=== PATIENT | female | born 1955 | race Caucasian/White ===

== ENCOUNTER 2016-05-23 13:00 | Inpatient (IN) | payer MEDICAID, MEDICARE ==
[2016-05-23] MEDS ORDERED: ASPIRIN 81 MG TABLET, CHEWABLE PO ONE (13:02)
[2016-05-23] MEDS ORDERED: DILTIAZEM HCL INJ 25 MG/5 ML VIAL IV ONE (13:07)
[2016-05-23] MEDS ORDERED: DILTIAZEM HCL/D5W 125 ML IV PRN ×2 (13:07→16:06)
[2016-05-23 13:33] LABS: ABSOLUTE BASOPHILS # (AUTO) 0.1 10^3/uL (0.0-0.2); ABSOLUTE EOSINOPHILS # (AUTO) 0.1 10^3/uL (0.0-0.6); ABSOLUTE LYMPHOCYTES (AUTO) 1.7 10^3/uL (0.5-4.7); ABSOLUTE MONOCYTES (AUTO) 0.8 10^3/uL (0.1-1.4); ABSOLUTE NEUT (AUTO) 8.1 10^3/uL (1.7-8.2); BASOPHILS % (AUTO) 0.6 % (0-2); EOSINOPHILS % (AUTO) 0.8 % (0-6); HEMATOCRIT 38.1 % (36.0-47.0); HEMOGLOBIN 13.2 g/dL (12.0-15.5); HGB HCT DIFFERENCE 1.5; LYMPHOCYTES % (AUTO) 16.1 % (13-45); MEAN CORPUSCULAR HEMOGLOBIN 32.3 pg (27.0-33.4); MEAN CORPUSCULAR HGB CONC 34.7 g/dL (32.0-36.0); MEAN CORPUSCULAR VOLUME 93 fl (80-97); MONOCYTES % (AUTO) 7.6 % (3-13); RED CELL DISTRIBUTION WIDTH 12.9 % (11.5-14.0); SEGMENTED NEUTROPHILS % (AUTO) 74.9 % (42-78); WHITE BLOOD COUNT 10.8 10^3/uL (4.0-10.5)
[2016-05-23 13:49] LABS: ALANINE AMINOTRANSFERASE 27 U/L (9-52); ALBUMIN 3.4 g/dL (3.5-5.0); ALKALINE PHOSPHATASE 77 U/L (38-126); ANION GAP 10 (5-19); ASPARTATE AMINO TRANSFERASE 13 U/L (14-36); BILIRUBIN,DIRECT 0.2 mg/dL (0.0-0.4); BILIRUBIN,TOTAL 0.7 mg/dL (0.2-1.3); BLOOD UREA NITROGEN 6 mg/dL (7-20); CALCIUM 9.3 mg/dL (8.4-10.2); CARBON DIOXIDE 28 mmol/L (22-30); CHLORIDE 101 mmol/L (98-107); CREATINE KINASE 71 U/L (30-135); CREATININE RESULT 0.59 mg/dL (0.52-1.25); GLUCOSE 107 mg/dL (75-110); SODIUM 139.4 mmol/L (137-145); TOTAL PROTEIN 6.2 g/dL (6.3-8.2)
--- NOTE | 2016-05-23 13:51 | ER Document Report ---
ED General - General Chief Complaint: Shortness Of Breath Stated Complaint: BREATHING PROBLEMS Mode of Arrival: Medic Information source: Patient, Emergency Med Personnel Notes: 60-year-old female history COPD A. fib on Eliquis presents by EMS with concerns of one week duration of productive yellow cough with shortness of breath. Patient was found with a heart rate in the 180s, was given breathing treatments by EMS due to left upper lobe rhonchi. Patient notes fevers at home - HPI Onset: Last week Onset/Duration: Persistent Quality of pain: Achy Severity: Mild Pain Level: 1 Associated symptoms: Productive cough, Fever, Shortness of breath Exacerbated by: Walking Relieved by: Denies Similar symptoms previously: No Recently seen / treated by doctor: No Past Medical History - Social History Smoking Status: Current Every Day Smoker Cigarette use (# per day): Yes Chew tobacco use (# tins/day): No Smoking Education Provided: Yes - Patient counselled regarding cessation for 4 minutes Family History: Reviewed & Not Pertinent - Past Medical History Cardiac Medical History: Reports: Hx Atrial Fibrillation, Hx Hypercholesterolemia, Hx Hypertension Review of Systems - Review of Systems Notes: REVIEW OF SYSTEMS: CONSTITUTIONAL : Denies fever, chills, or sweats. Denies recent illness. EENT: Denies eye, ear, throat, or mouth pain or symptoms. Denies nasal or sinus congestion or discharge. Denies throat, tongue, or mouth swelling or difficulty swallowing. CARDIOVASCULAR: Denies chest pain. Denies palpitations or racing or irregular heart beat. Denies ankle edema. RESPIRATORY: Admits cough shortness breath difficult to breathing productive GASTROINTESTINAL: Denies abdominal pain or distention. Denies nausea, vomiting , or diarrhea. Denies blood in vomitus, stools, or per rectum. Denies black, tarry stools. Denies constipation. GENITOURINARY: Denies difficulty urinating, painful urination, burning, frequency, blood in urine, or discharge. FEMALE GENITOURINARY: Denies vaginal bleeding, heavy or abnormal periods, irregular periods. Denies vaginal discharge or odor. MUSCULOSKELETAL: Denies back or neck pain or stiffness. Denies joint pain or swelling. SKIN: Denies rash, lesions or sores. HEMATOLOGIC : Denies easy bruising or bleeding. LYMPHATIC: Denies swollen, enlarged glands. NEUROLOGICAL: Denies confusion or altered mental status. Denies passing out or loss of consciousness. Denies dizziness or lightheadedness. Denies headache. Denies weakness or paralysis or loss of use of either side. Denies problems with gait or speech. Denies sensory loss, numbness, or tingling. Denies seizures. PSYCHIATRIC: Denies anxiety or stress. Denies depression, suicidal ideation, or homicidal ideation. ALL OTHER SYSTEMS REVIEWED AND NEGATIVE. Dictation was performed using [employer] voice recognition software PHYSICAL EXAMINATION: GENERAL: Well-appearing, well-nourished and in no acute distress. HEAD: Atraumatic, normocephalic. EYES: Pupils equal round and reactive to light, extraocular movements intact, conjunctiva are normal. ENT: Nares patent, oropharynx clear without exudates. Moist mucous membranes. NECK: Normal range of motion, supple without lymphadenopathy LUNGS: Breath sounds clear to auscultation bilaterally and equal. No wheezes rales or rhonchi. HEART: A. fib RVR ABDOMEN: Soft, nontender, nondistended abdomen. No guarding, no rebound. No masses appreciated. Female : deferred Musculoskeletal: Normal range of motion, no pitting or edema. No cyanosis. NEUROLOGICAL: Cranial nerves grossly intact. Normal speech, normal gait. Normal sensory, motor exams PSYCH: Normal mood, normal affect. SKIN: Warm, Dry, normal turgor, no rashes or lesions noted. Physical Exam - Vital signs Vitals: Resp Pulse Ox 22 H 99 05/23/16 13:04 05/23/16 13:04 Course - Re-evaluation Re-evalutation: 05/23/16 13:51 Patient was given Cardizem heart rate is now 93 and irregular. Laboratory imaging pending 05/23/16 14:41 Patient is placed on Cardizem drip, will be admitted for A. fib RVR COPD exacerbation - Vital Signs Vital signs: Temp Pulse Resp BP Pulse Ox 22 H 127/80 H 95 05/23/16 14:01 05/23/16 14:00 05/23/16 14:01 - Laboratory Result Diagrams: 05/23/16 13:20 05/23/16 13:20 Laboratory results interpreted by me: 05/23/16 05/23/16 13:20 13:20 WBC 10.8 H BUN 6 L AST 13 L Total Protein 6.2 L Albumin 3.4 L Critical Care Note - Critical Care Note Total time excluding time spent on procedures (mins): 34 Comments: minutes of critical care time spent in direct contact evaluating and reevaluating the patient, treating symptoms, reviewing labs and studies and speaking with family and consultants excluding any procedures Discharge - Discharge Clinical Impression: Encounter for smoking cessation counseling, Atrial fibrillation with rapid ventricular response, Obstructive chronic bronchitis with exacerbation Condition: Fair Disposition: ADMITTED INPATIENT Admitting Provider: Hospitalist Unit Admitted: Telemetry
[2016-05-23 14:01] LABS: CREATINE KINASE MB 1.07 ng/mL (<4.55)
[2016-05-23 14:02] LABS: TROPONIN I < 0.012 ng/mL
[2016-05-23 15:17] LABS: APPEARANCE,URINE CLEAR; BILIRUBIN,URINE NEGATIVE (NEGATIVE); GLUCOSE, URINE NEGATIVE (NEGATIVE); KETONES,URINE NEGATIVE (NEGATIVE); LEUKOCYTE ESTERASE,URINE NEGATIVE (NEGATIVE); NITRITE,URINE NEGATIVE (NEGATIVE); PROTEIN,URINE NEGATIVE (NEGATIVE); URINE SPECIFIC GRAVITY 1.004
[2016-05-23] MEDS ORDERED: ALBUTEROL SULFATE 0.083% NEB 2.5 MG/3 ML AMPUL NEB PRN (16:01)
[2016-05-23] MEDS ORDERED: MAGNESIUM HYDROXIDE SUSP 30 ML UDCUP PO PRN (16:01)
[2016-05-23] MEDS ORDERED: RINGERS SOLUTION,LACTATED 1,000 ML IV PRN (16:01)
[2016-05-23] MEDS ORDERED: ONDANSETRON HCL INJ/PF 4 MG/2 ML SDV IV PRN (16:01)
[2016-05-23] MEDS ORDERED: ACETAMINOPHEN 325 MG TABLET PO PRN (16:01)
--- NOTE | 2016-05-23 16:22 | PDOC H&P ---
History of Present Illness Admission Date/PCP: 05/23/16 15:07 Patient complains of: My heart is racing History of Present Illness: WALLY MARIA is a 60 year old female presents to the emergency department from home with 1 week history of not feeling well described as intermittent racing heart and palpitations, increasing shortness of breath with wheezing and progressive weakness. She became dizzy this morning but did not lose consciousness and decided it was time to come in to the emergency department for further evaluation. She has a history of chronic atrial fibrillation previously controlled on Tikosyn and Eliquis but followed by cardiology in [place] and she has recently moved to this area and not established with new providers. she thinks she may have run out of her meds in the last week or so. She denies fevers and chills, chest pain, nausea, vomiting, night sweats, hemoptysis. Evaluation in the emergency department found her to be in atrial fibrillation with a rapid ventricular response and actively wheezing we were consulted to admit for further evaluation and management. Past Medical History Cardiac Medical History: Reports: Atrial Fibrillation, Hyperlipidema, Hypertension Pulmonary Medical History: Reports: Chronic Obstructive Pulmonary Disease (COPD) Social History Smoking Status: Current Every Day Smoker Frequency of Alcohol Use: None Hx Recreational Drug Use: No Hx Prescription Drug Abuse: No - Advance Directive Resuscitation Status: Full Code Family History Family History: Reviewed & Not Pertinent Parental Family History Reviewed: Yes Children Family History Reviewed: Yes Sibling(s) Family History Reviewed.: Yes Medication/Allergy Home Medications: Albuterol Sulfate [Proair HFA Inhalation Aerosol 8.5 gm MDI] 2 puff IH PRN PRN 05/23/16 Apixaban [Eliquis 5 mg Tablet] 5 mg PO BID 05/23/16 Buspirone HCl [Buspar 10 mg Tablet] 10 mg PO BID 05/23/16 Cyclobenzaprine HCl [Flexeril 10 mg Tablet] 10 mg PO Q8HP PRN 05/23/16 Dofetilide [Tikosyn] 250 mg PO Q12 05/23/16 Fluticasone/Salmeterol [Advair 250-50 Diskus 28 dose] 1 puff IH BID 05/23/16 Levothyroxine Sodium [Synthroid 0.1 mg Tablet] 0.1 mg PO DAILY 05/23/16 Magnesium Oxide [Mag-Ox 400 mg Tablet] 400 mg PO DAILY 05/23/16 Montelukast Sodium [Singulair 10 mg Tablet] 10 mg PO QHS 05/23/16 Pantoprazole Sodium [Protonix] 40 mg PO BID 05/23/16 Sertraline HCl [Zoloft] 100 mg PO DAILY 05/23/16 Review of Systems Constitutional: ABSENT: chills, fever(s), headache(s), weight gain, weight loss Eyes: ABSENT: visual disturbances Ears: ABSENT: hearing changes Cardiovascular: PRESENT: dyspnea on exertion, palpitations. ABSENT: chest pain , edema, orthropnea Respiratory: PRESENT: as per HPI, cough, other. ABSENT: hemoptysis, sputum Gastrointestinal: ABSENT: abdominal pain, constipation, diarrhea, hematemesis, hematochezia, nausea, vomiting Genitourinary: ABSENT: dysuria, hematuria Musculoskeletal: ABSENT: joint swelling Integumentary: ABSENT: rash, wounds Neurological: PRESENT: dizziness. ABSENT: abnormal gait, abnormal speech, confusion, focal weakness, syncope Psychiatric: ABSENT: anxiety, depression Endocrine: ABSENT: cold intolerance, heat intolerance, polydipsia, polyuria Hematologic/Lymphatic: ABSENT: easy bleeding, easy bruising Physical Exam Vital Signs: Temp Pulse Resp BP Pulse Ox 22 H 127/80 H 95 05/23/16 14:01 05/23/16 14:00 05/23/16 14:01 PHYSICAL EXAM GENERAL: NAD; well developed,THIN AND FRAIL; no obese; alert and oriented to person, place, time, situation HEENT: normocephalic, atraumatic; EOMI, PERRLA, no conjunctival injection, no scleral icterus; oral mucosa moist, post oropharynx red/edematous without exudate, neck supple, no LAD, normal ROM RESPIRATORY: no accessory muscle use, no increased WOB, good air entry bilaterally; no wheezes, rales, rhonchi; no inspiratory crackles CARDIO: no JVD; irr irr; no systolic murmur; tachycardia; cardizem at 10mg/hr VASCULAR: no carotid bruit; no abdominal bruit; no pallor; 2+ radial, DP pulse ; normal capillary refill GI: soft; nondistended; normal bowel sounds; no hepato spleno megaly; no rebound, rigidity, guarding; nontender NEURO: normal patella reflexes; normal sensation; normal motor function; no dysarthria; no nystagmus; tongue protrudes midline; MSK: 4/5 strength; normal ROM hips; no tenderness EXTREMITIES: no calf tender; no palpable cords in calf; no clubbing, cyanosis , pedal edema PSYCH: normal affect, normal mood SKIN: warm; moist; no petechiae; no telengectasias; no jaundice; no rash Results Laboratory Results: Labs reviewed, mild leukocytosis at 10.8 rest of CBC normal; chemistries unremarkable with good renal function, LFTs good; troponin negative; urinalysis shows moderate blood for urobilinogen 5 RBC 1 WBC negative nitrite and negative leukocyte esterase EKG Comments: A. fib with RVR, ST changes that are likely repolarization abnormality due to the rate, corrected QT interval is 490 Impressions: Chest X-Ray 05/23/16 13:02 IMPRESSION: COPD. NO ACUTE RADIOGRAPHIC FINDING IN THE CHEST. Status: Image reviewed by me - Agree with radiology Assessment & Plan - Diagnosis (1) COPD exacerbation Is this a current diagnosis for this admission?: YesPlan: Possible acute bacterial bronchitis accounting for the exacerbation. Start systemic steroids, empiric antibiotics, scheduled and as needed nebulizers, supplemental O2, and IS. (2) Atrial fibrillation with RVR Is this a current diagnosis for this admission?: YesPlan: Admit the patient to IMCU for IV fluids, continue Cardizem drip, trend cardiac enzymes tonight. Check stat d-dimer and if positive sent for CT angiography of the chest. I spoke with Dr. Burgos who will see the patient in consultation. Continue anticoagulation. (3) Tobacco dependence Is this a current diagnosis for this admission?: YesPlan: Tobacco cessation counseling. (4) Depression Qualifiers: Depression Type: unspecified Qualified Code(s): F32.9 - Major depressive disorder, single episode, unspecified Is this a current diagnosis for this admission?: YesPlan: Controlled, continue home regimen. (5) Hypothyroidism Qualifiers: Hypothyroidism type: unspecified Qualified Code(s): E03.9 - Hypothyroidism, unspecified Is this a current diagnosis for this admission?: YesPlan: TSH shows hormone replacement at therapeutic levels, continue home regimen. (6) Chronic anticoagulation Is this a current diagnosis for this admission?: YesPlan: As above, continue Eliquis - Time Time Spent: 50 to 70 Minutes Medications reviewed and adjusted accordingly: Yes Anticipated discharge: Home Within: within 72 hours - Inpatient Certification Medical Necessity: Significant Comorbidiites Make Outpatient Treatment Too Risky , Need For IV Fluids, Need For Continuous Telemetry Monitoring, Risk of Complication if Not Cared For in Hospital - Plan Summary Plan Summary: Patient will need to establish with a primary care provider and a local motion designer for ongoing care of her chronic medical conditions.
[2016-05-23 16:59] LABS: MAGNESIUM 1.7 mg/dL (1.6-2.3); PHOSPHORUS 3.5 mg/dL (2.5-4.5)
[2016-05-23 17:11] LABS: TROPONIN I < 0.012 ng/mL
[2016-05-23] MEDS ORDERED: FLUTICASONE/SALMETEROL DISKUS 250-50 MCG/DOSE IH SCH (20:00)
[2016-05-23] MEDS: IPRATROPIUM/ALBUTEROL 0.5-2.5 MG/3 ML AMPUL NEB SCH (20:28)
--- NOTE | 2016-05-23 20:47 | EKG REPORT ---
SEVERITY:- ABNORMAL ECG - ATRIAL FIBRILLATION WITH RAPID V-RATE REPOLARIZATION ABNORMALITY, PROB RATE RELATED : Confirmed by: Mayra Shields 23-May-2016 20:46:51
[2016-05-23] MEDS: BUSPIRONE HCL 10 MG TABLET PO SCH (21:47)
[2016-05-23] MEDS: DOXYCYCLINE HYCLATE 100 MG TABLET PO SCH (21:48)
[2016-05-23] MEDS: METHYLPREDNISOLONE INJ 40 MG/1 ML SDV IV SCH (21:48)
[2016-05-23] MEDS: FLUTICASONE/SALMETEROL DISKUS 250-50 MCG/DOSE IH SCH (21:49)
[2016-05-24] MEDS: METHYLPREDNISOLONE INJ 40 MG/1 ML SDV IV SCH ×3 (05:32→22:36)
[2016-05-24] MEDS: LANSOPRAZOLE 15 MG TAB.RAP.DR PO SCH (05:32)
[2016-05-24] MEDS: CYCLOBENZAPRINE HCL 10 MG TABLET PO PRN (07:17)
[2016-05-24 07:32] LABS: HEMATOCRIT 37.1 % (36.0-47.0); HEMOGLOBIN 12.8 g/dL (12.0-15.5); HGB HCT DIFFERENCE 1.3; MEAN CORPUSCULAR HEMOGLOBIN 32.2 pg (27.0-33.4); MEAN CORPUSCULAR HGB CONC 34.6 g/dL (32.0-36.0); MEAN CORPUSCULAR VOLUME 93 fl (80-97); RED BLOOD COUNT 3.97 10^6/uL (3.72-5.28); RED CELL DISTRIBUTION WIDTH 12.5 % (11.5-14.0); WHITE BLOOD COUNT 9.9 10^3/uL (4.0-10.5)
[2016-05-24 07:54] LABS: ANION GAP 11 (5-19); BLOOD UREA NITROGEN 14 mg/dL (7-20); CALCIUM 9.4 mg/dL (8.4-10.2); CARBON DIOXIDE 26 mmol/L (22-30); CHLORIDE 105 mmol/L (98-107); CHOLESTEROL 112.97 mg/dL (0-200); CREATININE RESULT 0.65 mg/dL (0.52-1.25); Direct HDL 34 mg/dL (>40); GLUCOSE 160 mg/dL (75-110); POTASSIUM 4.5 mmol/L (3.6-5.0); SODIUM 141.7 mmol/L (137-145); TRIGLYCERIDES 75 mg/dL (<150)
[2016-05-24] MEDS ORDERED: ENOXAPARIN SODIUM INJ 40 MG/0.4 ML DISP.SYRIN SUBCUT SCH (08:00)
[2016-05-24 08:05] LABS: BASOPHILS % (MANUAL) 0 % (0-2); DIRECT LDL 57 mg/dL (<100); EOSINOPHILS % (MANUAL) 0 % (0-6); LYMPHOCYTES % (MANUAL) 7 % (13-45); TOTAL CELLS COUNTED 100
[2016-05-24 08:06] LABS: OVALOCYTES SLIGHT; POIKILOCYTOSIS SLIGHT; TEAR DROP CELLS SLIGHT
[2016-05-24] MEDS ORDERED: DILTIAZEM HCL 60 MG TABLET PO ONE (08:15)
[2016-05-24] MEDS: IPRATROPIUM/ALBUTEROL 0.5-2.5 MG/3 ML AMPUL NEB SCH ×3 (08:58→19:28)
[2016-05-24] MEDS ORDERED: LEVOTHYROXINE SODIUM 0.1 MG TABLET PO SCH (10:00)
[2016-05-24] MEDS: LEVOTHYROXINE SODIUM 0.05 MG TABLET PO SCH (10:14)
[2016-05-24] MEDS: DOXYCYCLINE HYCLATE 100 MG TABLET PO SCH ×2 (10:14→22:36)
[2016-05-24] MEDS: DOCUSATE SODIUM 100 MG CAPSULE PO SCH (10:15)
[2016-05-24] MEDS: BUSPIRONE HCL 10 MG TABLET PO SCH ×2 (10:15→17:12)
[2016-05-24] MEDS: SERTRALINE HCL 50 MG TABLET PO SCH (10:15)
[2016-05-24] MEDS: MAGNESIUM OXIDE 400 MG TABLET PO SCH (10:15)
[2016-05-24] MEDS: NICOTINE 21 MG/24 HR PATCH.TD24 TD SCH (10:16)
[2016-05-24] MEDS: FLUTICASONE/SALMETEROL DISKUS 250-50 MCG/DOSE IH SCH ×2 (10:16→22:36)
--- NOTE | 2016-05-24 11:22 | PDOC PROGRESS REPORT ---
Subjective Progress Note for:: 05/24/16 Subjective:: Reason for follow-up visit: COPD exacerbation, atrial fibrillation with RVR Hospital course: WALLY MARIA is a 60 year old female presents to the emergency department from home with 1 week history of not feeling well described as intermittent racing heart and palpitations, increasing shortness of breath with wheezing and progressive weakness. She became dizzy this morning but did not lose consciousness and decided it was time to come in to the emergency department for further evaluation. She has a history of chronic atrial fibrillation previously controlled on Tikosyn and Eliquis but followed by cardiology in [place] and she has recently moved to this area and not established with new providers. she thinks she may have run out of her meds in the last week or so. She denies fevers and chills, chest pain, nausea, vomiting , night sweats, hemoptysis. Evaluation in the emergency department found her to be in atrial fibrillation with a rapid ventricular response and actively wheezing we were consulted to admit for further evaluation and management. rate is controlled on cardizem 10mg/hr and she is asymptomatic, no more fluttering or palpitations. breathing is better but not back to baseline, just coarse this morning. denies fevers/chills, cough with phlegm has improved, no more wheezing, feels close to baseline. ROS: per HPI plus a total of 10 systems reviewed, pertinent positives and negatives noted above, remaining systems negative. Physical Exam Vital Signs: Temp Pulse Resp BP Pulse Ox 98.2 F 90 22 H 104/63 92 05/23/16 17:23 05/23/16 20:30 05/24/16 01:01 05/24/16 01:00 05/24/16 01:01 Intake & Output 05/23/16 05/24/16 05/25/16 06:59 06:59 06:59 Intake Total 1159 Balance 1159 Weight 61.235 kg PHYSICAL EXAM GENERAL: NAD; well developed,THIN AND FRAIL; no obese; alert and oriented to person, place, time, situation HEENT: normocephalic, atraumatic; no conjunctival injection, no scleral icterus ; oral mucosa moist RESPIRATORY: no accessory muscle use, no increased WOB, good air entry bilaterally; Resolution of bilat wheezes and rhonchi; no inspiratory crackles CARDIO: no JVD; irr irr; no systolic murmur; no tachycardia; cardizem at 10mg/ hr VASCULAR: no carotid bruit; no abdominal bruit; no pallor; 2+ radial, DP pulse ; normal capillary refill GI: soft; nondistended; normal bowel sounds; no hepato spleno megaly; no rebound, rigidity, guarding; nontender NEURO: normal patella reflexes; normal sensation; normal motor function; no dysarthria; no nystagmus; tongue protrudes midline; MSK: 4/5 strength; normal ROM hips; no tenderness EXTREMITIES: no calf tender; no palpable cords in calf; no clubbing, cyanosis , pedal edema PSYCH: normal affect, normal mood SKIN: warm; moist; no petechiae; no telengectasias; no jaundice; no rash Results Laboratory Results: 05/24/16 07:18 05/23/16 05/23/16 05/24/16 16:30 16:30 07:18 WBC 9.9 RBC 3.97 Hgb 12.8 Hct 37.1 MCV 93 MCH 32.2 MCHC 34.6 RDW 12.5 Plt Count 254 Seg Neutrophils % Not Reportable Lymphocytes % Not Reportable Monocytes % Not Reportable Eosinophils % Not Reportable Basophils % Not Reportable Absolute Neutrophils Not Reportable Absolute Lymphocytes Not Reportable Absolute Monocytes Not Reportable Absolute Eosinophils Not Reportable Absolute Basophils Not Reportable Phosphorus 3.5 Magnesium 1.7 TSH 0.07 L 05/23/16 05/23/16 05/24/16 16:30 19:15 01:13 Troponin I < 0.012 < 0.012 < 0.012 NT-Pro-B Natriuret Pep 3280 H Impressions: Chest X-Ray 05/23/16 13:02 IMPRESSION: COPD. NO ACUTE RADIOGRAPHIC FINDING IN THE CHEST. Assessment & Plan - Diagnosis (1) COPD exacerbation Is this a current diagnosis for this admission?: YesPlan: minimal improved. Probable acute bacterial bronchitis accounting for the exacerbation. continue systemic steroids, empiric antibiotics, scheduled and as needed nebulizers, supplemental O2, and IS. (2) Atrial fibrillation with RVR Is this a current diagnosis for this admission?: YesPlan: Rate controlled on Cardizem drip, transition to oral cardizem; cardiac enzymes trended neg for acute ischemia. stat d-dimer negative. I spoke with Dr. Burgos who will see the patient in consultation. Continue anticoagulation. (3) Hypothyroidism Qualifiers: Hypothyroidism type: unspecified Qualified Code(s): E03.9 - Hypothyroidism, unspecified Is this a current diagnosis for this admission?: YesPlan: TSH shows hormone replacement at supratherapeutic levels, reduce home dose in half to 0.5mg/d and monitor for effect, possibly contributing to her RVR. (4) Tobacco dependence Is this a current diagnosis for this admission?: Yes (5) Depression Qualifiers: Depression Type: unspecified Qualified Code(s): F32.9 - Major depressive disorder, single episode, unspecified Is this a current diagnosis for this admission?: Yes (6) Chronic anticoagulation Is this a current diagnosis for this admission?: Yes - Time Time Spent with patient: 25-34 minutes Medications reviewed and adjusted accordingly: Yes Anticipated discharge: Home Within: within 24 hours - Plan Summary Plan Summary: Case discussed with Dr. Burgos who will evaluate later this morning and make decisions regarding Tikosyn therapy. She needs to establish with a primary care provider here locally as well as a counter person.
[2016-05-24] MEDS ORDERED: DILTIAZEM HCL 60 MG TABLET PO SCH (12:00)
--- NOTE | 2016-05-24 13:24 | EKG REPORT ---
SEVERITY:- ABNORMAL ECG - ATRIAL FIBRILLATION ABERRENT CONDUCTION NONSPECIFIC ST-T CHANGES- INFERIOR LEADS : Confirmed by: Denton Aviles MD 24-May-2016 13:23:18
[2016-05-24] MEDS: APIXABAN 5 MG TABLET PO SCH ×2 (13:43→17:12)
[2016-05-24] MEDS ORDERED: DOFETILIDE 125 MCG CAPSULE PO ONE (14:30)
[2016-05-24] MEDS ORDERED: DILTIAZEM HCL/D5W 125 ML IV PRN (17:41)
[2016-05-24] MEDS ORDERED: DOFETILIDE 125 MCG CAPSULE ONE (22:07)
[2016-05-24] MEDS: DOFETILIDE 125 MCG CAPSULE PO SCH (22:36)
[2016-05-25] MEDS ORDERED: DILTIAZEM HCL/D5W 125 MG/125 ML RTUINJ IV PRN (03:09)
[2016-05-25] MEDS: CYCLOBENZAPRINE HCL 10 MG TABLET PO PRN (03:40)
--- NOTE | 2016-05-25 04:08 | CONSULTATION REPORT E ---
Consultation Report NAME: WALLY MARIA : 1955 AGE: 60Y DATE: 05/24/2016 313 A TO: TANIKA MIRANDA M.D. FROM: ANI HAN M.D. Requesting Physician Note that the patient was seen from 1:50 p.m. to 2:20 p.m. Total of 30 minutes spent on this patient. Note that it was very difficult to get a history from the patient since the patient is very severely hard of hearing in both ears and she has left her hearing aids at home and states that she has no batteries for the hearing aid. Hence, history obtained by gestures and also from review of the chart of the patient. CHIEF COMPLAINT: Recurrent atrial fibrillation with rapid ventricular response, acute exacerbation of COPD with evidence of acute bronchitis with sputum production. HISTORY OF PRESENT ILLNESS: Patient is a 60-year-old female, who states that since the past 1 week has been having increasing shortness of breath with exertion and also palpitations. She was on Tikosyn and Eliquis, but she ran out of her Tikosyn since she moved to this area about a month ago. She thinks that she may have not taken the Tikosyn for the last 1 to 2 weeks. She has not established a primary care provider locally in [place] or a local manager room after moving over here. She also complained of progressive weakness and shortness of breath with wheezing and cough productive of greenish-yellow sputum. She also complains of palpitations. She has a history of COPD and atrial fibrillation, which from what she says has been in sinus rhythm on Eliquis and Tikosyn, but since she ran out of Tikosyn and due to exacerbation of her COPD and acute bronchitis, by history and physical exam, she has gone back into atrial fibrillation about a week ago, but she states that she is taking Eliquis. She also complains of fever, but no chills. Temperature is not really known by the patient. She denies any chest pain. She has no nausea or vomiting. There is orthopnea present, but no PND or leg edema. There is no hemoptysis or bleeding on Eliquis. PAST MEDICAL HISTORY: Positive for atrial fibrillation. Patient most likely was in sinus rhythm on Tikosyn and has recurrence of atrial fibrillation with rapid ventricular response secondary to stopping Tikosyn and also due to acute exacerbation of COPD with acute bronchitis. She also has a history of hypertension, hyperlipidemia, and COPD. She also has a history of bronchitis. The patient also has history of anxiety and depression and also has a history of hypothyroidism and history of GERD. PAST SURGICAL HISTORY: Positive for history of cholecystectomy. SOCIAL HISTORY: The patient has no history of EtOH abuse. No recreational or prescription drug abuse. She smokes about half a pack of cigarettes a day. FAMILY HISTORY: Negative for any CAD or hypertension or heart failure in her parents or her siblings. ADVANCE DIRECTIVE: The patient is a FULL CODE. Spouse is her surrogate healthcare decision maker. It is very difficult to talk to the patient about advance care planning since the patient is very severely hard of hearing in both ears and does not understand even if you shout. ALLERGIES: THE PATIENT IS ALLERGIC TO SULFA. MEDICATIONS: The patient's medications are: 1. Acetaminophen 650 mg p.o. q. 4 hours p.r.n. 2. She is on Ventolin 2.5 mg nebulizer treatment q. 3 hours p.r.n. 3. She is on Eliquis 5 mg p.o. b.i.d. 4. She is on BuSpar 10 mg p.o. b.i.d. 5. She is on cyclobenzaprine. 6. Flexeril 10 mg p.o. q. 8 hours p.r.n. 7. She was given 1 dose of Cardizem 60 mg. 8. She is on Colace 100 mg p.o. daily. 9. She has not taken Tikosyn, which is at 250 mcg p.o. q. 12 hours. 10. She is on doxycycline, Vibramycin 100 mg p.o. q. 12 hours. 11. She is on fluticasone and salmeterol that is Advair Diskus 250/50 mcg 1 inhalation q. 12 hours. 12. She was on a Cardizem drip, which has been stopped and she has been started on p.o. Cardizem. 13. She is on ipratropium albuterol sulfate 3 mg nebulizer treatment q. 6 hours while awake. 14. She is on Pepcid 15 mg p.o. q. 6h. 15. She is on levothyroxine sodium 0.05 mg that is 50 mcg q.a.m. 16. She is on magnesium hydroxide that is milk of magnesia 30 mL p.o. at bedtime p.r.n. 17. She is on magnesium oxide 400 mg p.o. daily. 18. She is on Solu-Medrol 40 mg IV q. 8 hours. 19. She is on metoprolol 2.5 mg IV q. 6 hours p.r.n. 20. She is on NicoDerm patch 21 mg per 24 hours, 1 patch each day. 21. She is on Zoloft 100 mg p.o. daily. REVIEW OF SYSTEMS: CONSTITUTIONAL: Complains of fever, but temperature is not known exactly, without chills. The patient complains of generalized weakness. HEAD: Denies any headaches or head injury. EYES: No history of amblyopia or diplopia. No history of amaurosis fugax. EARS: The patient is severely hard of hearing and is very reluctant to use her hearing aids. There is no vertigo. There is no tinnitus. NOSE: No history of hay fever. No history of nosebleed. No history of nasal polyps. MOUTH: No history of altered taste sensation. No history of ulcers in the mouth. No bleeding from the gums. THROAT: No history of odynophagia or dysphagia. No history of recurrent sore throat. SKIN: No history of pruritus. No history of psoriasis. No history of skin cancer. No history of yellowish discoloration of the skin. NECK: Denies any C-spine arthritis symptoms. No goiter. No enlarged lymph nodes. LUNGS: History of COPD. Continues to smoke. Recent symptoms of acute exacerbation of COPD with wheezing and rhonchi and sputum production, which is yellowish-green in color. No history of sleep apnea. No history of pulmonary embolism. No history of pleuritic chest pain. No history of hemoptysis. CARDIAC: History of hypertension. No history of coronary artery disease. History of atrial fibrillation, which has now recurred. Most likely, the patient was in sinus rhythm, on Tikosyn. The patient also is on Eliquis. No history of congestive heart failure. Does have orthopnea, but no PND. Does have palpitations and dyspnea on exertion, but no leg edema. No history of congestive heart failure. This morning, she felt very dizzy and that is why she came to the hospital along with shortness of breath. There was no syncope. GASTROINTESTINAL: History of GERD present. No history of GI bleed. No history of fatty food intolerance. No history of hepatitis. No history of altered bowel movements. MUSCULOSKELETAL: History of chronic low back pain secondary to arthritis. No history of collagen vascular disease. ENDOCRINE: No history of diabetes mellitus. No history of polydipsia or polyuria. History of hypothyroidism. Patient is on replacement therapy. No history of heat or cold intolerance. No history of pruritus. No history of excessive sweating. RENAL: No history of chronic kidney disease. GENITOURINARY: No symptoms of hematuria, pyuria, or dysuria. No history of recurrent UTIs. CENTRAL NERVOUS SYSTEM: No history of TIA or CVA. No history of sleep apnea. No history of gait imbalance. No history of headaches or seizures. PSYCHIATRY: History of anxiety and depression, controlled with Zoloft. No history of suicidal ideation or homicidal ideation. VASCULAR: No history of buttock or calf claudication. No history of DVT. HEMATOLOGICAL: No history of coagulopathy. No history of bleeding diathesis. No history of clotting disorders. PHYSICAL EXAMINATION: GENERAL: On examination, the patient is well built, in mild respiratory distress due to wheezing and cough productive of sputum and is well groomed. VITAL SIGNS: Subsequently at 2:06, she was afebrile with a temperature of 99.7 degrees Fahrenheit. Pulse was 114 beats per minute, irregularly irregular. Monitor shows atrial fibrillation with fast ventricular response. Blood pressure is 113/67. Respirations are 20 per minute. O2 sats are 91% on room air. HEAD: Atraumatic, normocephalic. EYES: Pupils are equal, round, regular, and reactive to light and accommodation. Extraocular movements are normal. EARS: Tympanic membranes are intact. External auditory canals are clear. There are no lesions on the pinnae. NOSE: There is no deviated nasal septum. There is no inflammation of nasal mucous membranes. There are no nasal polyps. MOUTH: No history of altered taste sensation. No history of ulcers in the mouth. No history of bleeding from the gums. THROAT: No redness in the oropharynx. No exudates. SKIN: There are no petechiae, ecchymoses or skin rashes or skin lesions. NECK: Supple. There is no JVD. Carotids are equal. There is no bruit. There are no accessory muscles of respiration in use. There is no goiter. There is no bruit. There is no lymphadenopathy. LUNGS: There are no accessory muscles of respiration in use. There is diminished air entry on prolonged expiration on auscultation along with rhonchi and wheezing bilaterally. There is hyperresonance on percussion. HEART: S1 and S2 are heard. S1 is of variable intensity. There is no S3 gallop. There is no S4 gallop. There is systolic murmur in the left sternal border at the apex without significant radiation. ABDOMEN: Soft and nontender. There is no hepatosplenomegaly. Bowel sounds are well heard. There are no tender areas or masses. There is no rebound, guarding or rigidity. EXTREMITIES: Femorals are diminished. There are no femoral bruits. Leg pulses are diminished. There is no DVT or cellulitis. There is no pedal edema. There is no cyanosis or clubbing. CENTRAL NERVOUS SYSTEM: The patient is conscious, awake, alert, and oriented x3 with no focal deficits. PSYCHIATRIC: The patient does not appear to be agitated or depressed. In view of the patient's difficulty hearing, her judgment and insight could not be tested, but I suspect that these are normal, but her affect seems to be normal. DIAGNOSTIC TEST RESULTS: Her chest x-ray shows no acute findings. There is no evidence of congestive heart failure or pneumonia or pneumothorax. Her EKG done last night shows atrial fibrillation with rapid ventricular response of 140 beats per minute. There is repolarization abnormality of diffuse leads, most likely secondary to atrial fibrillation. Her subsequent EKG shows atrial fibrillation with aberrant conduction, nonspecific ST-T changes in inferior leads. The patient's laboratory data shows white count of 9,900; hemoglobin is 12.8; hematocrit is 37.1; and the platelet count is 254,000. The patient's white count yesterday was 10,800. The patient's D-dimer was 0.34. The patient's sodium is 141.7, potassium 4.5; chloride 105, CO2 is 26. The patient's BUN is 14, creatinine is 0.65, GFR is greater than 60, and her glucose is 160. Her hemoglobin A1c is 4.9. Calcium is 9.4. Her cardiac enzymes show troponin that is negative x3. NT-proBNP is 3,280. IMPRESSION: 1. ATRIAL FIBRILLATION RECURRENCE WITH RAPID VENTRICULAR RESPONSE. This is due to the patient stopping her Tikosyn because she ran out of medications. The plan is to restart the patient on Tikosyn and start the patient on a small dose of IV Cardizem drip until the Tikosyn kicks in. We will discuss with the patient about cardioversion since she has been anticoagulated, but this needs to be clarified. 2. CHRONIC OBSTRUCTIVE PULMONARY DISEASE WITH ACUTE EXACERBATION. Continue steroids and nebulizer treatment. We would recommend changing the patient to Xopenex since this is less likely to cause the heart rate to increase. 3. PATIENT HAS ACUTE BRONCHITIS. Continue respiratory treatments and also continue the patient's antibiotics. 4. HISTORY OF HYPERTENSION THAT SEEMS TO BE WELL CONTROLLED. 5. HYPOTHYROIDISM. Plan is to continue replacement. 6. GASTROESOPHAGEAL REFLUX DISEASE. 7. ANXIETY. 8. DEPRESSION. 9. SEVERE HEARING LOSS, BOTH EARS. 10. TOBACCO DEPENDENCE. Five minutes spent on the patient on discussions about ill effects of tobacco to the lungs and to the heart and to the vascular system. Given her idea to stop it by will power and also have tobacco cessation counseling and treatment with drugs if needed. RECOMMENDATIONS: As mentioned earlier, continue her Zoloft for her depression. Continue her Eliquis. Restart the patient on Tikosyn 250 mcg p.o. q. 12 hours, first dose now. Start the patient on small dose of IV Cardizem. We would recommend also continuing the patient's thyroid replacement. Note that the patient's situation needs highly complex medical decision making in view of the patient's atrial fibrillation with rapid ventricular response and also starting the patient on Tikosyn, which can cause arrhythmias and also discussions with the patient of possible cardioversion if she does not convert to sinus rhythm. Also, medications were reviewed and adjusted as mentioned earlier and also coordinating taken care with the hospitalist taking care of the patient. We will get records from [place] from her manager room to see if she had a recent echo. If not, we would repeat an echo once the patient gets into sinus rhythm or when the atrial fibrillation is controlled with a controlled heart rate. Note, total of 30 minutes spent on this patient with more than 50% of the time spent on direct patient care. This involved highly complex decision making since there is a risk of stroke, putting the patient back on Xopenex with the belief that the patient has indeed been taking the Eliquis at home since there is a chance of stroke or degeneration of the atrial fibrillation to a ventricular arrhythmia post cardioversion. All of this discussed with the patient and with the hospitalist taking care of the patient. More than 50% of the time spent on direct patient care and also as mentioned earlier, review of the medications and adjusting the patient's medications. We will follow with you. DICTATING PHYSICIAN: TANIKA MIRANDA M.D. [id number] PHY#: [id number] ID: [id number] JOB#: [id number] ACCT: [id number] cc:TANIKA MIRANDA M.D. >
[2016-05-25] MEDS: LANSOPRAZOLE 15 MG TAB.RAP.DR PO SCH (05:17)
[2016-05-25] MEDS: METHYLPREDNISOLONE INJ 40 MG/1 ML SDV IV SCH ×2 (05:19→14:31)
[2016-05-25] MEDS: IPRATROPIUM/ALBUTEROL 0.5-2.5 MG/3 ML AMPUL NEB SCH ×3 (07:50→20:24)
[2016-05-25] MEDS: SERTRALINE HCL 50 MG TABLET PO SCH (09:00)
[2016-05-25] MEDS: DOXYCYCLINE HYCLATE 100 MG TABLET PO SCH ×2 (09:02→21:41)
[2016-05-25] MEDS: BUSPIRONE HCL 10 MG TABLET PO SCH ×2 (09:02→17:06)
[2016-05-25] MEDS: LEVOTHYROXINE SODIUM 0.05 MG TABLET PO SCH (09:02)
[2016-05-25] MEDS: MAGNESIUM OXIDE 400 MG TABLET PO SCH (09:02)
[2016-05-25] MEDS: FLUTICASONE/SALMETEROL DISKUS 250-50 MCG/DOSE IH SCH ×2 (09:03→21:42)
[2016-05-25] MEDS: DOCUSATE SODIUM 100 MG CAPSULE PO SCH (09:03)
[2016-05-25] MEDS: METOPROLOL TARTRATE PF/INJ 5 MG/5 ML SDV IV PRN ×2 (09:04→15:58)
[2016-05-25] MEDS: APIXABAN 5 MG TABLET PO SCH ×2 (09:05→17:06)
[2016-05-25] MEDS: NICOTINE 21 MG/24 HR PATCH.TD24 TD SCH (09:17)
--- NOTE | 2016-05-25 10:44 | EKG REPORT ---
SEVERITY:- ABNORMAL ECG - ATRIAL FIBRILLATION RUN OF VENTRICULAR PREMATURE COMPLEXES NONSPECIFIC ST-T CHANGES- INFERIOR LEADS : Confirmed by: Denton Aviles MD 25-May-2016 10:43:23
[2016-05-25] MEDS: DOFETILIDE 125 MCG CAPSULE PO SCH ×2 (12:13→21:45)
[2016-05-25] MEDS ORDERED: DIGOXIN INJ 0.5 MG/2 ML AMPULE IV ONE ×2 (12:15→15:00)
[2016-05-25] MEDS ORDERED: DILTIAZEM HCL 30 MG TABLET PO SCH (15:00)
[2016-05-25 15:25] LABS: FREE T3 3.38 pg/mL (2.77-5.27)
[2016-05-25] MEDS ORDERED: DILTIAZEM HCL/D5W 125 ML IV PRN (16:25)
--- NOTE | 2016-05-25 16:37 | PDOC PROGRESS REPORT ---
Subjective Progress Note for:: 05/25/16 Subjective:: Patient has no shortness of breath no chest pain She still in atrial fibrillation with rapid ventricular rate Tikosyn was initiated as well as Eliquis Physical Exam Vital Signs: Temp Pulse Resp BP Pulse Ox 98.6 F 94 16 98/56 L 98 05/25/16 12:10 05/25/16 14:00 05/25/16 13:37 05/25/16 12:10 05/25/16 12:10 Intake & Output 05/24/16 05/25/16 05/26/16 00:59 00:59 00:59 Intake Total 1409 447 Output Total 0 500 Balance 1409 -53 Weight 61.235 kg 58.8 kg 58.6 kg General appearance: PRESENT: no acute distress, well-developed, well-nourished Head exam: PRESENT: atraumatic, normocephalic Eye exam: PRESENT: conjunctiva pink, EOMI, PERRLA. ABSENT: scleral icterus Ear exam: PRESENT: normal external ear exam Mouth exam: PRESENT: moist, tongue midline Neck exam: ABSENT: carotid bruit, JVD, lymphadenopathy, thyromegaly Respiratory exam: PRESENT: clear to auscultation dara. ABSENT: rales, rhonchi, wheezes Cardiovascular exam: PRESENT: RRR. ABSENT: diastolic murmur, rubs, systolic murmur Pulses: PRESENT: normal dorsalis pedis pul Vascular exam: PRESENT: normal capillary refill GI/Abdominal exam: PRESENT: normal bowel sounds, soft. ABSENT: distended, guarding, mass, organolmegaly, rebound, tenderness Rectal exam: PRESENT: deferred Extremities exam: PRESENT: full ROM. ABSENT: calf tenderness, clubbing, pedal edema Neurological exam: PRESENT: alert, awake, oriented to person, oriented to place , oriented to time, oriented to situation, CN II-XII grossly intact. ABSENT: motor sensory deficit Psychiatric exam: PRESENT: appropriate affect, normal mood. ABSENT: homicidal ideation, suicidal ideation Skin exam: PRESENT: dry, intact, warm. ABSENT: cyanosis, rash Results Laboratory Results: 05/24/16 07:18 05/24/16 07:18 05/24/16 07:18 Free T4 2.76 H Free T3 pg/mL 3.38 05/23/16 05/23/16 05/24/16 16:30 19:15 01:13 Troponin I < 0.012 < 0.012 < 0.012 NT-Pro-B Natriuret Pep 3280 H Impressions: Chest X-Ray 05/23/16 13:02 IMPRESSION: COPD. NO ACUTE RADIOGRAPHIC FINDING IN THE CHEST. Assessment & Plan - Diagnosis (1) Atrial fibrillation with RVR Is this a current diagnosis for this admission?: Yes (2) COPD exacerbation Is this a current diagnosis for this admission?: Yes (3) Chronic anticoagulation Is this a current diagnosis for this admission?: Yes (4) Hypothyroidism Qualifiers: Hypothyroidism type: unspecified Qualified Code(s): E03.9 - Hypothyroidism, unspecified Is this a current diagnosis for this admission?: Yes (5) Tobacco dependence Is this a current diagnosis for this admission?: Yes - Time Time Spent with patient: Initiate Cardizem IV and Cardizem drip. Continue present management as per Time Spent with patient: 25-34 minutes
[2016-05-25] MEDS ORDERED: DILTIAZEM HCL INJ 25 MG/5 ML VIAL IV ONE (17:30)
[2016-05-25] MEDS ORDERED: TIOTROPIUM BROMIDE DPI 5 CAP/KIT (18 MCG/CAP) IH ONE (22:30)
--- NOTE | 2016-05-25 23:08 | PROGRESS NOTE E ---
Progress Note NAME: WALLY MARIA : 1955 AGE: 60Y DATE: 05/25/2016 ROOM: 313 SUBJECTIVE: Note that the patient was seen from 12:30 p.m. to 1 p.m., a total of 30 minutes spent. The patient states her shortness of breath is slightly improved. She still has rhonchi and wheezing. She does not have PND or chest pain but she has orthopnea. She still is in atrial fibrillation with a ventricular response of 93 beats per minute, blood pressure 98/56, but the patient is awake, alert and oriented and is not confused and has good mentation. There is no leg edema. The patient continues to cough with some greenish-yellow sputum. Note that today the patient's hearing is much better and if you talk loudly, she can answer. She continues to be in atrial fibrillation but her ventricular response is 95. Last evening her heart rate had jumped up into the 120s, so we started her on Tikosyn 250 mcg p.o. b.i.d. with Cardizem at 2.5 mg/hr IV infusion. Subsequently the nurse called me later at night, and since the heart rate was still in the 120s we increased it to 5 mg/hour, which the patient is currently on. The patient has no bleeding on Eliquis. There are no TIA or CVA symptoms. OBJECTIVE: GENERAL: The patient is well built, at present in no major respiratory distress. She is well groomed. VITAL SIGNS: Temperature is 98.6 degrees Fahrenheit, pulse is 93 beats per minute, blood pressure is 98/56, respirations are 16 per minute, O2 sats are 98% on nasal cannula at 4.5 L/min. HEENT: Head is normocephalic, atraumatic. Eyes: Pupils are equal, round, and reactive to light and accommodation. Extraocular movements are normal. Ears: Tympanic membranes are intact. External auditory canals are clear. There are no lesions in the pinnae. Nose: There is no deviated nasal septum. There is no inflammation of nasal mucous membranes. Mouth: Mucous membranes of the mouth are moist, tongue is moist. There are no ulcers and there is no bleeding from the gums. Throat: There is no redness in the oropharynx, no exudates. SKIN: There are no petechiae, ecchymoses or skin rashes or skin lesions. NECK: Supple. There is no JVD. Carotids are equal. There is no bruit. There are no accessory muscles of respiration in use. There is no goiter. There is no bruit. There is no lymphadenopathy. LUNGS: There are no accessory muscles of respiration in use. There is diminished air entry on prolonged expiration on auscultation along with hyperresonance. There is also on auscultation, bilateral rhonchi and wheezing, much less than yesterday. There are no rales of CHF. HEART: S1 and S2 are heard. S1 is of variable intensity. There is no S3 gallop. There is no S4 gallop. There is systolic murmur in the left sternal border at the apex without significant radiation. ABDOMEN: Soft and nontender. There is no hepatosplenomegaly. Bowel sounds are well heard. There are no tender areas or masses. There is no rebound, guarding or rigidity. EXTREMITIES: Femorals are diminished. There are no femoral bruits. Leg pulses are diminished. There is no DVT or cellulitis. There is no pedal edema. There is no cyanosis or clubbing. CENTRAL NERVOUS SYSTEM: The patient is conscious, awake, alert, and oriented x3 with no focal deficits. PSYCHIATRIC: The patient does not appear to be agitated or depressed. The patient has some difficulty hearing but patient is much improved since yesterday. Her judgment and insight seem to be intact. DIAGNOSTIC DATA: The patient's EKG shows atrial fibrillation, ventricular response of 132 beats per minute. There is some aberrant nonspecific IVCD and T-changes in the inferior leads. The patient's intake and output are not accurate. Intake is supposed to be 337 mL; output is 280 mL. There are no labs done today. IMPRESSION: 1. ATRIAL FIBRILLATION RECURRENCE WITH SOMEWHAT RAPID VENTRICULAR RESPONSE BUT NOW HEART RATE IN THE 90S BUT BLOOD PRESSURE IS ALSO ON THE LOWER SIDE. The plan is to continue the patient on Tikosyn. We will discontinue the Cardizem drip and will give the patient digoxin 0.125 mg IV push x1 and will repeat if necessary. If the patient continues to have rapid atrial fibrillation, then would have to restart the patient on Cardizem. Other option is since the patient has been on Eliquis for some time, I think it would be safe to cardiovert the patient, but in the meantime I want her COPD to come back to baseline since the success rate of the cardioversion would be much higher. 2. COPD WITH ACUTE EXACERBATION. Continue steroids, continue nebulizer treatment. We would change the patient to Xopenex; this is less likely to cause the heart rate to increase. 3. PATIENT HAS ACUTE BRONCHITIS. The patient is on antibiotics and respiratory treatments. Note that the patient is also on nasal O2. 4. HISTORY OF HYPERTENSION BUT SEEMS TO BE ON THE LOW SIDE NOW DUE TO MEDICATION. 5. HYPOTHYROIDISM. Plan is to continue replacement of thyroid hormone. 6. GERD. At present stable. 7. ANXIETY. At present seems to be controlled. 8. DEPRESSION. The patient does not appear to be depressed. 9. HEARING LOSS. Less severe in both ears compared to yesterday. 10. TOBACCO ABUSE/DEPENDENCE DISORDER. Again, restressed the need for the patient to stop smoking especially with the patient having COPD. RECOMMENDATIONS: As mentioned earlier, continue the patient on Tikosyn and Eliquis. Give the patient digoxin 1 dose and see if this will help the patient to convert to sinus rhythm. The patient can have multiple doses and maybe even add digoxin to the patient's Tikosyn, since the patient's blood pressure is on the lower side. The other option is to convert her as soon as her COPD and bronchitis are under control. Still we have not gotten records from [place]. Continue the patient's Zoloft for her depression and continue her respiratory treatments and antibiotics. Note that 30 minutes were spent on this patient with more than 50% of the time spent on direct patient care. Also, the management was reviewed with the nurse taking care of the patient and also with the other attending physician covering the patient. Even though there is slight improvement in her COPD and bronchitis, the patient's atrial fibrillation is still not under control and medicines have been changed after review. Also, discussed the options of cardioversion with the patient including the risks and complications of cardioversion such as cardiac standstill needing CPR and also requiring temporary or permanent pacemaker for bradycardia, stroke, skin sheets, and all of these have been discussed with the patient. I would prefer to wait until the COPD and bronchitis are under better control prior to starting this. In view of all of the above, decision making was complex. Thanking you. DICTATING PHYSICIAN: TANIKA MIRANDA M.D. [id number] PHY#: [id number] ID: [id number] JOB#: [id number] ACCT: [id number] cc: >
[2016-05-26] MEDS: CYCLOBENZAPRINE HCL 10 MG TABLET PO PRN (01:41)
[2016-05-26] MEDS: LANSOPRAZOLE 15 MG TAB.RAP.DR PO SCH (05:48)
--- NOTE | 2016-05-26 07:20 | EKG REPORT ---
SEVERITY:- ABNORMAL ECG - ATRIAL FIBRILLATION BORDERLINE R WAVE PROGRESSION, ANTERIOR LEADS BORDERLINE T ABNORMALITIES, INFERIOR LEADS : Confirmed by: Denton Aviles MD 26-May-2016 07:19:36
[2016-05-26] MEDS: IPRATROPIUM/ALBUTEROL 0.5-2.5 MG/3 ML AMPUL NEB SCH ×3 (07:59→20:08)
[2016-05-26] MEDS: SERTRALINE HCL 50 MG TABLET PO SCH (09:07)
[2016-05-26] MEDS: MAGNESIUM OXIDE 400 MG TABLET PO SCH (09:07)
[2016-05-26] MEDS: DOCUSATE SODIUM 100 MG CAPSULE PO SCH (09:07)
[2016-05-26] MEDS: BUSPIRONE HCL 10 MG TABLET PO SCH ×2 (09:07→17:39)
[2016-05-26] MEDS: LEVOTHYROXINE SODIUM 0.05 MG TABLET PO SCH (09:07)
[2016-05-26] MEDS: DOXYCYCLINE HYCLATE 100 MG TABLET PO SCH ×2 (09:08→21:31)
[2016-05-26] MEDS: FLUTICASONE/SALMETEROL DISKUS 250-50 MCG/DOSE IH SCH ×2 (09:08→21:31)
[2016-05-26] MEDS: APIXABAN 5 MG TABLET PO SCH ×2 (09:09→17:39)
[2016-05-26] MEDS: DOFETILIDE 125 MCG CAPSULE PO SCH ×2 (09:14→21:30)
[2016-05-26] MEDS: NICOTINE 21 MG/24 HR PATCH.TD24 TD SCH (09:15)
[2016-05-26] MEDS ORDERED: PREDNISONE 20 MG TABLET PO SCH (10:00)
[2016-05-26] MEDS ORDERED: TIOTROPIUM BROMIDE DPI 5 CAP/KIT (18 MCG/CAP) IH SCH (10:00)
[2016-05-26] MEDS ORDERED: DILTIAZEM HCL 120 MG CAP.SR.24H PO ONE (14:00)
[2016-05-26] MEDS ORDERED: DILTIAZEM HCL 30 MG TABLET PO ONE (16:30)
[2016-05-26] MEDS ORDERED: DIGOXIN INJ 0.5 MG/2 ML AMPULE IV ONE (16:30)
--- NOTE | 2016-05-26 18:15 | PDOC PROGRESS REPORT ---
Subjective Progress Note for:: 05/26/16 Subjective:: Patient wishes to go home but her heart rate is too fast ; she is now in atrial fibrillation at a rate of 130-150 She received an extra dose of digoxin, Cardizem CD was increased Patient was advised to stay overnight or she will have to sign AGAINST MEDICAL ADVICE Physical Exam Vital Signs: Temp Pulse Resp BP Pulse Ox 98.6 F 114 H 22 H 112/76 97 05/26/16 15:12 05/26/16 15:12 05/26/16 15:12 05/26/16 15:12 05/26/16 15:12 Intake & Output 05/25/16 05/26/16 05/27/16 00:59 00:59 00:59 Intake Total 1409 1027 1152 Output Total 0 1100 1250 Balance 1409 -73 -98 Weight 58.8 kg 58.6 kg 60 kg General appearance: PRESENT: mild distress, thin, other - Anxious Head exam: PRESENT: atraumatic, normocephalic Eye exam: PRESENT: conjunctiva pink, EOMI, PERRLA. ABSENT: scleral icterus Ear exam: PRESENT: normal external ear exam Mouth exam: PRESENT: moist, tongue midline Neck exam: ABSENT: carotid bruit, JVD, lymphadenopathy, thyromegaly Respiratory exam: PRESENT: clear to auscultation dara. ABSENT: rales, rhonchi, wheezes Cardiovascular exam: PRESENT: irregular rhythm, RRR. ABSENT: diastolic murmur, rubs, systolic murmur Pulses: PRESENT: normal dorsalis pedis pul Vascular exam: PRESENT: normal capillary refill GI/Abdominal exam: PRESENT: normal bowel sounds, soft. ABSENT: distended, guarding, mass, organolmegaly, rebound, tenderness Rectal exam: PRESENT: deferred Extremities exam: PRESENT: full ROM. ABSENT: calf tenderness, clubbing, pedal edema Neurological exam: PRESENT: alert, awake, oriented to person, oriented to place , oriented to time, oriented to situation, CN II-XII grossly intact. ABSENT: motor sensory deficit Psychiatric exam: PRESENT: appropriate affect, normal mood. ABSENT: homicidal ideation, suicidal ideation Skin exam: PRESENT: dry, intact, warm. ABSENT: cyanosis, rash Results Laboratory Results: 05/24/16 07:18 05/24/16 07:18 05/23/16 05/23/1605/24/17 16:30 19:15 01:13 Troponin I < 0.012 < 0.012 < 0.012 NT-Pro-B Natriuret Pep 3280 H Impressions: Chest X-Ray 05/25/16 00:00 IMPRESSION: No significant interval change. No acute findings. Obstructive lung disease. Other findings as noted above Assessment & Plan - Diagnosis (1) Atrial fibrillation with RVR Is this a current diagnosis for this admission?: Yes (2) COPD exacerbation Is this a current diagnosis for this admission?: Yes (3) Chronic anticoagulation Is this a current diagnosis for this admission?: Yes (4) Hypothyroidism Qualifiers: Hypothyroidism type: unspecified Qualified Code(s): E03.9 - Hypothyroidism, unspecified Is this a current diagnosis for this admission?: Yes (5) Tobacco dependence Is this a current diagnosis for this admission?: Yes - Time Time Spent with patient: We will reevaluate patient in a.m.; if rate is controlled she will be discharged home Time Spent with patient: 25-34 minutes
[2016-05-26] MEDS ORDERED: LEVALBUTEROL HCL NEB 0.63 MG/3 ML AMPUL NEB PRN (21:47)
[2016-05-26] MEDS ORDERED: DILTIAZEM HCL 180 MG CAPSULE.CR PO SCH (22:00)
[2016-05-26] MEDS ORDERED: DILTIAZEM HCL 120 MG CAP.SR.24H PO SCH ×2 (22:00)
--- NOTE | 2016-05-26 22:30 | PROGRESS NOTE E ---
Progress Note NAME: WALLY MARIA : 1955 AGE: 60Y DATE: 05/26/2016 ROOM: 313 SUBJECTIVE: Note that the patient was seen from 2:00 p.m. to 2:30 p.m. on 05/26/2016. A total of 30 minutes spent. The patient states her shortness of breath is much better. She has occasional cough, bringing up a very little scanty sputum. Although she denies wheezing, PND or orthopnea, she does have some palpitations. There is no chest pain or discomfort. There is no leg edema. There is no bleeding on Eliquis. There are no TIA or CVA symptoms. Note that the patient is on 10 mg/hr of Cardizem infusion. The patient desperately wants to go home today. OBJECTIVE: GENERAL: The patient is well built, at present in no acute respiratory distress. She is well groomed. VITAL SIGNS: The patient earlier her temperature is 98.3 degrees Fahrenheit. At present the heart rate is 114 beats per minute. The patient is in atrial fibrillation. Blood pressure is *------*, respirations are 16 per minute, O2 sats are 96% on 3 L. HEENT: Head is atraumatic, normocephalic. Eyes: Pupils are equal, round, and reactive to light and accommodation. Extraocular movements are normal. Ears: Tympanic membranes are intact. External auditory canals are clear. There are no lesions in the pinnae. Nose: There is no deviated nasal septum. There is no inflammation of nasal mucous membranes. Mouth: Mucous membranes of the mouth are moist, tongue is moist. There are no ulcers and there is no bleeding from the gums. Throat: There is no redness in the oropharynx, and there are no exudates. NECK: Supple. There is no JVD. Carotids are equal. There is no bruit. There are no accessory muscles of respiration in use. There is no goiter. There is no lymphadenopathy. Trachea is central. LUNGS: On examination, there is hyperresonance on percussion. There is decreased air entry and prolonged expiration throughout and on auscultation and also there is a few faint wheezing on the left side. There are a few rhonchi on the right. There are no rales of CHF. HEART: S1 and S2 are heard. S1 is of variable intensity. There is no S3 gallop. There is no S4 gallop. There is systolic murmur in the left sternal border and the apex without significant radiation. ABDOMEN: Soft and nontender. There is no hepatosplenomegaly. Bowel sounds are well heard. There are no tender areas or masses. There is no rebound, guarding or rigidity. EXTREMITIES: Femorals are diminished. There are no femoral bruits. Leg pulses are diminished. There is no DVT or cellulitis. There is no pedal edema. There is no cyanosis or clubbing. CENTRAL NERVOUS SYSTEM: The patient is conscious, awake, alert, and oriented x3 with no focal deficits. PSYCHIATRIC: The patient does not appear to be agitated or depressed. The patient has difficulty hearing but this is much improved and she seems to understand if the words are spoken loudly. Her judgment and insight seem to be intact. The patient's 24-hour intake is 1180 mL; output is 1250 mL. The patient's EKG is atrial fibrillation with ventricular response of 100 beats per minute, borderline RV progression anterior leads, borderline T abnormalities in inferior leads. The patient's QTc is 444, hence it is not too prolonged. IMPRESSION: 1. ATRIAL FIBRILLATION WITH STILL FAST VENTRICULAR RESPONSE BUT THE PATIENT VERY ANXIOUS TO GO HOME. I have spoken to her and told her that unless her COPD/bronchitis comes back to baseline, it is going to be difficult, but she desperately wants to go home; hence, what I have done was started her on Cardizem CD 120 mg p.o. now and taper the Cardizem drip off and if the heart rate should shoot up, then we can give her dig. The other option I have spoken to her and I am not sure if she understands it, but I will come back and talk to her. Since she has been on Eliquis, we will keep her n.p.o. in the morning and try to cardiovert her and be able to send her home. We will discuss this with her and her further in the morning. Continue Tikosyn, continue Eliquis. 2. COPD WITH ACUTE EXACERBATION, MUCH IMPROVED. Continue steroids. Continue nebulizer treatment. Will change the patient to Xopenex. This is less likely to cause the heart rate to increase; hence, we will stop the albuterol and ipratropium albuterol sulfate and start the patient on Xopenex. 3. ACUTE BRONCHITIS. Continue antibiotics and bronchodilator treatments. 4. HISTORY OF HYPERTENSION. Blood pressure again back to normal. 5. HYPOTHYROIDISM. Patient is to continue replacement of thyroid hormone. 6. GERD. At present stable. 7. ANXIETY. Seems to be controlled. 8. DEPRESSION. The patient does not appear to be depressed. 9. HEARING LOSS. Less severe in both ears compared to yesterday. She is able to understand me when spoken to very loudly. 10. TOBACCO ABUSE/DEPENDENCE DISORDER. RECOMMENDATIONS: As mentioned earlier, we will continue the patient on Tikosyn and Eliquis. We will start the patient on Cardizem CD 120 mg p.o. now and q.12 h. and subsequently increase as tolerated. In the meantime if the heart rate does go up, we might manage it with IV bolus Cardizem or dose of digoxin intravenously. Continue antibiotics. Since nebulizer treatments have not been changed, I will change it to Xopenex. As mentioned earlier, I have already discussed options of cardioversion and its complications. Discussed with the hospitalist taking care of the patient. Medications were reviewed. Medication changes made. Note, 30 minutes spent on this patient with more than 50% of the time spent on direct patient care and also coordinating care with the current physician and also discussion with the nurse taking care of the patient, since the nurse is always next to the patient's bedside. Thanking you. DICTATING PHYSICIAN: TANIKA MIRANDA M.D. [id number] RAY#: [id number] ID: [id number] JOB#: [id number] ACCT: [id number] cc: >
[2016-05-27] MEDS: LANSOPRAZOLE 15 MG TAB.RAP.DR PO SCH (05:42)
[2016-05-27] MEDS: LEVOTHYROXINE SODIUM 0.05 MG TABLET PO SCH (07:52)
--- NOTE | 2016-05-27 08:25 | EKG REPORT ---
SEVERITY:- ABNORMAL ECG - ATRIAL FLUTTER/FIB, , A-RATE 294 MULTIFORM VENTRICULAR PREMATURE COMPLEXES : Confirmed by: Denton Aviles MD 27-May-2016 08:25:15
[2016-05-27 10:43] VITALS: BP 122/60
--- NOTE | 2016-05-29 17:04 | PDOC DISCHARGE SUMMARY ---
General - Admit/Disc Date/PCP Admission Date/Primary Care Provider: 05/23/16 15:51 no PMD Discharge Date: 05/27/16 - Discharge Diagnosis (1) Atrial fibrillation with RVR Is this a current diagnosis for this admission?: YesSummary: rate difficult to control Patient was placed on Cardizem drip and swiched to Cardizem CD 180 bid Patient was anxious to leave and will be followed in the office by Dr Carolina Cardioversion may be indicated Patient was anticoagulated with Eliquis (2) COPD exacerbation Is this a current diagnosis for this admission?: YesSummary: treated with steroids and nebs Patient was discharged with Doxycycline and Prednisone (3) Chronic anticoagulation Is this a current diagnosis for this admission?: YesSummary: continue Eliquis (4) Hypothyroidism Is this a current diagnosis for this admission?: YesSummary: continue Synthroid replacement (5) Tobacco dependence Is this a current diagnosis for this admission?: Yes - Additional Information Resuscitation Status: Full Code Discharge Diet: Cardiac Discharge Activity: Activity As Tolerated Home Medications: Albuterol Sulfate [Proair HFA Inhalation Aerosol 8.5 gm MDI] 2 puff IH PRN PRN 05/23/16 Apixaban [Eliquis 5 mg Tablet] 5 mg PO BID 05/23/16 Buspirone HCl [Buspar 10 mg Tablet] 10 mg PO BID 05/23/16 Fluticasone/Salmeterol [Advair 250-50 Diskus 28 dose] 1 puff IH BID 05/23/16 Magnesium Oxide [Mag-Ox 400 mg Tablet] 400 mg PO DAILY 05/23/16 Montelukast Sodium [Singulair 10 mg Tablet] 10 mg PO QHS 05/23/16 Pantoprazole Sodium [Protonix] 40 mg PO BID 05/23/16 Sertraline HCl [Zoloft] 100 mg PO DAILY 05/23/16 Tiotropium [place] [Spiriva Handihaler 18 mcg/dose (30 Dose)] 1 cap IH DAILY 12/31 Dofetilide [Tikosyn 125 Mcg Capsule] 250 mcg PO Q12 #60 capsule 05/26/16 Doxycycline Hyclate [Vibramycin 100 mg Tablet] 100 mg PO Q12 #14 tablet Levothyroxine Sodium [Synthroid 0.05 mg Tablet] 0.05 mg PO QAM #30 tablet Prednisone 20 mg PO ASDIR PRN #12 tablet 05/26/16 Diltiazem HCl [Cardizem Cd 180 mg Capsule] 180 mg PO Q12 #60 capsule.cr History of Present Illness Patient complains of: heart is racing History of Present Illness: WALLY MARIA is a 60 year old female presents to the emergency department from home with 1 week history of not feeling well described as intermittent racing heart and palpitations, increasing shortness of breath with wheezing and progressive weakness. She became dizzy this morning but did not lose consciousness and decided it was time to come in to the emergency department for further evaluation. She has a history of chronic atrial fibrillation previously controlled on Tikosyn and Eliquis but followed by cardiology in [place] and she has recently moved to this area and not established with new providers. she thinks she may have run out of her meds in the last week or so. She denies fevers and chills, chest pain, nausea, vomiting, night sweats, hemoptysis. Evaluation in the emergency department found her to be in atrial fibrillation with a rapid ventricular response and actively wheezing we were consulted to admit for further evaluation and management. Hospital Course Hospital Course: see above Physical Exam Vital Signs: Temp Pulse Resp BP Pulse Ox 97.6 F 78 16 122/60 96 05/27/16 10:40 05/27/16 10:40 05/27/16 10:40 05/27/16 10:40 05/27/16 10:40 Intake & Output 05/28/16 05/29/16 05/30/16 00:59 00:59 00:59 Intake Total 247 Output Total 700 Balance -453 Weight 58.9 kg General appearance: PRESENT: no acute distress, thin Head exam: PRESENT: atraumatic, normocephalic Eye exam: PRESENT: conjunctiva pink, EOMI, PERRLA. ABSENT: scleral icterus Ear exam: PRESENT: normal external ear exam Mouth exam: PRESENT: moist, tongue midline Neck exam: ABSENT: carotid bruit, JVD, lymphadenopathy, thyromegaly Respiratory exam: PRESENT: decreased breath sounds, wheezes. ABSENT: rales, rhonchi Cardiovascular exam: PRESENT: irregular rhythm. ABSENT: diastolic murmur, rubs , systolic murmur Pulses: PRESENT: normal dorsalis pedis pul Vascular exam: PRESENT: normal capillary refill GI/Abdominal exam: PRESENT: normal bowel sounds, soft. ABSENT: distended, guarding, mass, organolmegaly, rebound, tenderness Rectal exam: PRESENT: deferred Extremities exam: PRESENT: full ROM. ABSENT: calf tenderness, clubbing, pedal edema Neurological exam: PRESENT: alert, awake, oriented to person, oriented to place , oriented to time, oriented to situation, CN II-XII grossly intact. ABSENT: motor sensory deficit Psychiatric exam: PRESENT: anxious, normal mood Skin exam: PRESENT: dry, intact, warm. ABSENT: cyanosis, rash Results Laboratory Results: 05/24/16 07:18 05/24/16 07:18 05/23/16 05/23/16 05/24/16 16:30 19:15 01:13 Troponin I < 0.012 < 0.012 < 0.012 NT-Pro-B Natriuret Pep 3280 H 05/24/16 07:18 05/24/16 07:18 MCV 93 fl (80-97) 05/24/16 07:18 MCH 32.2 pg (27.0-33.4) 05/24/16 07:18 MCHC 34.6 g/dL (32.0-36.0) 05/24/16 07:18 RDW 12.5 % (11.5-14.0) 05/24/16 07:18 Seg Neutrophils % Not Reportable 05/24/16 07:18 Lymphocytes % Not Reportable 05/24/16 07:18 Monocytes % Not Reportable 05/24/16 07:18 Eosinophils % Not Reportable 05/24/16 07:18 Basophils % Not Reportable 05/24/16 07:18 Absolute Neutrophils Not Reportable 05/24/16 07:18 Absolute Lymphocytes Not Reportable 05/24/16 07:18 Absolute Monocytes Not Reportable 05/24/16 07:18 Absolute Eosinophils Not Reportable 05/24/16 07:18 Absolute Basophils Not Reportable 05/24/16 07:18 Chloride 105 mmol/L (98-107) 05/24/16 07:18 Carbon Dioxide 26 mmol/L (22-30) 05/24/16 07:18 Anion Gap 11 (5-19) 05/24/16 07:18 Est GFR ( Amer) > 60 (>60) 05/24/16 07:18 Est GFR (Non-Af Amer) > 60 (>60) 05/24/16 07:18 Glucose 160 mg/dL (75-110) H 05/24/16 07:18 Calcium 9.4 mg/dL (8.4-10.2) 05/24/16 07:18 Phosphorus 3.5 mg/dL (2.5-4.5) 05/23/16 16:30 Magnesium 1.7 mg/dL (1.6-2.3) 05/23/16 16:30 Total Bilirubin 0.7 mg/dL (0.2-1.3) 05/23/16 13:20 AST 13 U/L (14-36) L 05/23/16 13:20 ALT 27 U/L (9-52) 05/23/16 13:20 Alkaline Phosphatase 77 U/L (38-126) 05/23/16 13:20 Total Protein 6.2 g/dL (6.3-8.2) L 05/23/16 13:20 Albumin 3.4 g/dL (3.5-5.0) L 05/23/16 13:20 Triglycerides 75 mg/dL (<150) 05/24/16 07:18 Cholesterol 112.97 mg/dL (0-200) 05/24/16 07:18 LDL Cholesterol Direct 57 mg/dL (<100) 05/24/16 07:18 VLDL Cholesterol 15.0 mg/dL (10-31) 05/24/16 07:18 HDL Cholesterol 34 mg/dL (>40) L 05/24/16 07:18 TSH 0.07 uIU/mL (0.47-4.68) L 05/23/16 16:30 Free T4 2.76 ng/dL (0.78-2.19) H 05/24/16 07:18 Free T3 pg/mL 3.38 pg/mL (2.77-5.27) 05/24/16 07:18 Urine Color YELLOW 05/23/16 15:00 Urine Appearance CLEAR 05/23/16 15:00 Urine pH 7.0 (5.0-9.0) 05/23/16 15:00 Ur Specific [place] 1.004 05/23/16 15:00 Urine Protein NEGATIVE mg/dL (NEGATIVE) 05/23/16 15:00 Urine Glucose (UA) NEGATIVE mg/dL (NEGATIVE) 05/23/16 15:00 Urine Ketones NEGATIVE mg/dL (NEGATIVE) 05/23/16 15:00 Urine Blood MODERATE (NEGATIVE) H 05/23/16 15:00 Urine Nitrite NEGATIVE (NEGATIVE) 05/23/16 15:00 Ur Leukocyte Esterase NEGATIVE (NEGATIVE) 05/23/16 15:00 Urine WBC (Auto) 1 /HPF 05/23/16 15:00 Urine RBC (Auto) 5 /HPF 05/23/16 15:00 05/23/16 05/23/16 05/23/16 13:20 13:20 16:30 Creatine Kinase 71 CK-MB (CK-2) 1.07 Troponin I < 0.012 < 0.012 NT-Pro-B Natriuret Pep 3280 H 05/23/16 05/24/16 19:15 01:13 Creatine Kinase CK-MB (CK-2) Troponin I < 0.012 < 0.012 NT-Pro-B Natriuret Pep Impressions: Chest X-Ray 05/25/16 00:00 IMPRESSION: No significant interval change. No acute findings. Obstructive lung disease. Other findings as noted above Plan Discharge Plan: discharged home Follow up with Dr Carolina on 06/03 Time Spent: Greater than 30 Minutes
== END 2016-05-27 11:18 | disposition home or self-care (01) | DRG 192 ==
LOC: ER 13:00 → UNDOADMIN 15:07 → EH 15:07 → 3W 05-24 13:56
PROVIDERS: ADMIT Internal Medicine; ATTEND Internal Medicine
PROC: 3E0F73Z Introduction of Anti-inflammatory into Respiratory Tract, Via Natural or Artificial Opening (ICD-10-PCS; principal; 2016-05-23)
DX: J44.0 Chronic obstructive pulmonary disease with (acute) lower respiratory infection (principal); I48.2 Chronic atrial fibrillation; E03.9 Hypothyroidism, unspecified; J20.8 Acute bronchitis due to other specified organisms; J44.1 Chronic obstructive pulmonary disease with (acute) exacerbation; I10 Essential (primary) hypertension; F32.9 Major depressive disorder, single episode, unspecified; F41.9 Anxiety disorder, unspecified; K21.9 Gastro-esophageal reflux disease without esophagitis; M46.96 Unspecified inflammatory spondylopathy, lumbar region; H91.93 Unspecified hearing loss, bilateral; E78.5 Hyperlipidemia, unspecified; F17.210 Nicotine dependence, cigarettes, uncomplicated; Z79.01 Long term (current) use of anticoagulants; Z79.899 Other long term (current) drug therapy; Z90.49 Acquired absence of other specified parts of digestive tract; Z88.2 Allergy status to sulfonamides
CPT/HCPCS: 36415; 71010; 80048; 80053; 80061; 81001; 82550; 82553; 83036; 83735; 83880; 84100; 84439; 84443; 84481; 84484; 85025; 85379; 93005; 93010; 94640; J1160; J2920; J3490; J7120; J7512; J7620

== ENCOUNTER 2016-07-05 17:50 | Emergency (ER) | payer MEDICAID ==
[2016-07-05] MEDS ORDERED: IPRATROPIUM/ALBUTEROL 0.5-2.5 MG/3 ML AMPUL NEB ONE (18:30)
[2016-07-05] MEDS ORDERED: NORMAL SALINE 1000 ML 1,000 ML IV PRN (18:30)
[2016-07-05] MEDS ORDERED: ALBUTEROL SULFATE 0.083% NEB 2.5 MG/3 ML AMPUL NEB ONE (18:30)
--- NOTE | 2016-07-05 18:35 | ER Document Report ---
ED Respiratory Problem - General Chief Complaint: Breathing Difficulty Stated Complaint: SHORTNESS OF BREATH Time Seen by Provider: 07/05/16 18:22 Mode of Arrival: Medic Information source: Patient TRAVEL OUTSIDE OF THE [place] IN LAST 30 DAYS: No - HPI Patient complains to provider of: COPD, Cough, Short of breath Onset: Last week Duration: Worse/persistent Context: Hx COPD, Smoker Short of Breath: Moderate Chest pain/discomfort: Tightness Cough: Productive Sputum amount: Small Sputum color: Yellow Sputum consistency: Mucoid Associated symptoms: Congestion, Cough, Fever, Short of breath, Wheezing Similar symptoms previously: Yes Recently seen / treated by doctor: No Notes: Patient is a 60-year-old female with a history of COPD who continues to smoke at least half a pack per day, who presents to the emergency room for complaints of 1 week history of productive cough, difficulty breathing, fever, cough is productive of yellowish green mucus, she reports that she had diarrhea a few days ago but that has since resolved, she denies any abdominal pain numbness reports that her oxygen saturation was in the high 70s upon arrival, she received Tylenol, Solu-Medrol and a breathing treatment in route to the hospital - Related Data Allergies/Adverse Reactions: Sulfa (Sulfonamide Antibiotics) Allergy (Verified 07/05/16 18:14) Past Medical History - General Information source: Patient - Social History Smoking Status: Current Every Day Smoker Chew tobacco use (# tins/day): No Frequency of alcohol use: Occasional Drug Abuse: None Family History: Reviewed & Not Pertinent - Past Medical History Cardiac Medical History: Reports: Hx Atrial Fibrillation, Hx Hypercholesterolemia, Hx Hypertension Pulmonary Medical History: Reports: Hx COPD Past Surgical History: Reports: Hx Cholecystectomy, Hx Gynecologic Surgery - d and c Review of Systems - Review of Systems Constitutional: Fever EENT: No symptoms reported Cardiovascular: No symptoms reported Respiratory: See HPI, Cough, Short of breath Gastrointestinal: No symptoms reported Genitourinary: No symptoms reported Female Genitourinary: No symptoms reported Musculoskeletal: No symptoms reported Skin: No symptoms reported Hematologic/Lymphatic: No symptoms reported Neurological/Psychological: No symptoms reported -: Yes All other systems reviewed and negative Physical Exam - Vital signs Vitals: Resp 22 H 07/05/16 17:52 Interpretation: Hypotensive - General General appearance: Alert In distress: Mild Notes: Chronically ill appearing - HEENT Head: Normocephalic, Atraumatic Eyes: Normal Conjunctiva: Normal Extraocular movements intact: Yes Eyelashes: Normal Pupils: PERRL Pharynx: Normal Neck: Normal - Respiratory Respiratory status: Tachypnea Chest status: Tender Breath sounds: Productive cough, Rhonchi, Wheezing Chest palpation: Normal - Cardiovascular Rhythm: Regular Heart sounds: Normal auscultation Murmur: No - Abdominal Inspection: Normal Distension: No distension Bowel sounds: Normal Tenderness: Nontender Organomegaly: No organomegaly - Back Back: Normal, Nontender - Extremities General upper extremity: Normal inspection General lower extremity: Normal inspection - Neurological Neuro grossly intact: Yes Cognition: Normal Orientation: AAOx4 [place] Coma Scale Eye Opening: Spontaneous [place] Coma Scale Verbal: Oriented [place] Coma Scale Motor: Obeys Commands [place] Coma Scale Total: 15 - Psychological Associated symptoms: Normal affect, Normal mood - Skin Skin Temperature: Warm Skin Moisture: Dry Skin Color: Normal Course - Re-evaluation Re-evalutation: 07/06/16 00:21 Reports feeling much better on reevaluation, lungs are clear to auscultation, she is able to ambulate to the bathroom without difficulty, I discussed the possibility of observation admission for continued nebulizer treatment and oxygen, patient states she has oxygen at home as well as a nebulizer with Nebules for treatment, she was advised to use them every 4-6 hours, she was started on antibiotics as well, and advised to return if symptoms worsen, patient acknowledges understanding and agreement with this plan - Vital Signs Vital signs: Temp Pulse Resp BP Pulse Ox 99.2 F 62 20 117/66 98 07/05/16 17:59 07/05/16 17:59 07/05/16 23:01 07/05/16 23:01 07/05/16 23:01 - Laboratory Result Diagrams: 07/05/16 18:20 07/05/16 18:20 Laboratory results interpreted by me: 07/05/16 07/05/16 07/05/16 18:20 18:20 18:20 WBC 17.8 H Hgb 11.5 L Hct 34.9 L RDW 14.2 H Seg Neutrophils % 85.1 H Lymphocytes % 7.6 L Absolute Neutrophils 15.1 H VBG pH 7.44 H Sodium 135.7 L Potassium 3.2 L Glucose 115 H Total Protein 5.5 L Albumin 3.0 L Urine Blood Urine Urobilinogen 07/05/16 20:50 WBC Hgb Hct RDW Seg Neutrophils % Lymphocytes % Absolute Neutrophils VBG pH Sodium Potassium Glucose Total Protein Albumin Urine Blood SMALL H Urine Urobilinogen 2.0 H - Diagnostic Test Radiology reviewed: Image reviewed, Reports reviewed - EKG Interpretation by Me EKG shows normal: Sinus rhythm Rate: Normal Rhythm: NSR Discharge - Discharge Clinical Impression: COPD exacerbation, Tobacco dependence, Bronchitis Condition: Stable Disposition: HOME, SELF-CARE Instructions: Stop Smoking ([facility]), Chronic Obstructive Lung Disease ([facility]), Bronchitis ([facility]) Additional Instructions: Follow up with your primary care provider in one to 2 days. Return to the emergency room immediately if symptoms worsen or any additional concerns. Prescriptions: Azithromycin [Zithromax 250 mg Tablet] 250 mg PO ASDIR PRN #6 tablet PRN Reason:
[2016-07-05 18:48] LABS: ABSOLUTE LYMPHOCYTES (AUTO) 1.3 10^3/uL (0.5-4.7); ABSOLUTE MONOCYTES (AUTO) 1.2 10^3/uL (0.1-1.4); ABSOLUTE NEUT (AUTO) 15.1 10^3/uL (1.7-8.2); BASOPHILS % (AUTO) 0.2 % (0-2); EOSINOPHILS % (AUTO) 0.2 % (0-6); HEMATOCRIT 34.9 % (36.0-47.0); HEMOGLOBIN 11.5 g/dL (12.0-15.5); HGB HCT DIFFERENCE -0.4; LYMPHOCYTES % (AUTO) 7.6 % (13-45); MEAN CORPUSCULAR HEMOGLOBIN 30.8 pg (27.0-33.4); MEAN CORPUSCULAR VOLUME 93 fl (80-97); MONOCYTES % (AUTO) 6.9 % (3-13); RED BLOOD COUNT 3.74 10^6/uL (3.72-5.28); RED CELL DISTRIBUTION WIDTH 14.2 % (11.5-14.0); SEGMENTED NEUTROPHILS % (AUTO) 85.1 % (42-78); VENOUS BLOOD BASE EXCESS 3.5 mmol/L; VENOUS BLOOD HCO3 28.1 mmol/L (20-32); VENOUS BLOOD PCO2 42.2 mmHg (35-63); VENOUS BLOOD PH 7.44 (7.30-7.42); WHITE BLOOD COUNT 17.8 10^3/uL (4.0-10.5)
[2016-07-05 19:02] LABS: ALANINE AMINOTRANSFERASE 27 U/L (9-52); ALKALINE PHOSPHATASE 81 U/L (38-126); ANION GAP 11 (5-19); ASPARTATE AMINO TRANSFERASE 17 U/L (14-36); BILIRUBIN,DIRECT 0.3 mg/dL (0.0-0.4); BILIRUBIN,TOTAL 0.5 mg/dL (0.2-1.3); BLOOD UREA NITROGEN 13 mg/dL (7-20); CALCIUM 9.1 mg/dL (8.4-10.2); CARBON DIOXIDE 27 mmol/L (22-30); CHLORIDE 98 mmol/L (98-107); CREATINE KINASE 48 U/L (30-135); CREATININE RESULT 0.62 mg/dL (0.52-1.25); GLUCOSE 115 mg/dL (75-110); POTASSIUM 3.2 mmol/L (3.6-5.0); SODIUM 135.7 mmol/L (137-145); TOTAL PROTEIN 5.5 g/dL (6.3-8.2)
--- NOTE | 2016-07-05 19:03 | RADIOLOGY REPORT (SQ) ---
EXAM DESCRIPTION: CHEST PA/LAT COMPLETED DATE/TIME: 07/05/2016 6:48 pm REASON FOR STUDY: db COMPARISON: 05/25/2016 NUMBER OF VIEWS: Two view. TECHNIQUE: Frontal and lateral radiographic views of the chest acquired. LIMITATIONS: None. FINDINGS: LUNGS AND PLEURA: Mild Peribronchial cuffing and interstitial changes. Trace right pleura l effusion. No consolidation. No pneumothorax. MEDIASTINUM AND HILAR STRUCTURES: Stable. HEART AND VASCULAR STRUCTURES: Stable. BONES: No acute findings. HARDWARE: None in the chest. OTHER: No other significant finding. IMPRESSION: Mild Peribronchial cuffing and interstitial changes. Trace right pleural effusion. TECHNICAL DOCUMENTATION: JOB ID: [id number] [employer]- All Rights Reserved
[2016-07-05 19:14] LABS: TROPONIN I < 0.012 ng/mL
[2016-07-05] MEDS ORDERED: CEFTRIAXONE INJ 1000 MG VIAL IV ONE (19:49)
[2016-07-05 21:44] LABS: APPEARANCE,URINE CLEAR; BILIRUBIN,URINE NEGATIVE (NEGATIVE); GLUCOSE, URINE NEGATIVE (NEGATIVE); KETONES,URINE NEGATIVE (NEGATIVE); LEUKOCYTE ESTERASE,URINE NEGATIVE (NEGATIVE); NITRITE,URINE NEGATIVE (NEGATIVE); PROTEIN,URINE NEGATIVE (NEGATIVE); URINE SPECIFIC GRAVITY 1.013
[2016-07-05 23:21] VITALS: BP 117/66
--- NOTE | 2016-07-06 07:53 | EKG REPORT ---
SEVERITY:- NORMAL ECG - SINUS RHYTHM : Confirmed by: Denton Aviles MD 06-Jul-2016 07:52:17
== END 2016-07-05 23:15 | disposition home or self-care (01) ==
LOC: ER 17:50
DX: J44.1 Chronic obstructive pulmonary disease with (acute) exacerbation (principal); F17.200 Nicotine dependence, unspecified, uncomplicated; R06.02 Shortness of breath; R05 Cough; R07.89 Other chest pain; R50.9 Fever, unspecified; I10 Essential (primary) hypertension; Z88.2 Allergy status to sulfonamides; Z99.81 Dependence on supplemental oxygen; Z79.899 Other long term (current) drug therapy
CPT/HCPCS: 93005; 94640 ×2; 99285; 96361; 96365; 36415; 87070; 87086; 87205; 82553; 82550; 85025; 87077; 80053; 81001; 84484; 82803; 83605; 71020; 93010; J0696; J7030; J7620

== ENCOUNTER → 2018-08-29 | Outpatient (CLI) | payer MEDICAID | LOC: WI 09:56 | PROVIDERS: ATTEND Family Medicine Geriatric Medicine | DX: Z12.31 Encounter for screening mammogram for malignant neoplasm of breast (principal) | CPT/HCPCS: 77067 ==

== ENCOUNTER → 2019-01-18 | Outpatient (CLI) | payer MEDICARE, MEDICAID ==
[2019-01-18 10:36] LABS: ALBUMIN 4.4 g/dL (3.5-5.0); ALKALINE PHOSPHATASE 83 U/L (38-126); ANION GAP 9 (5-19); ASPARTATE AMINO TRANSFERASE 20 U/L (14-36); BILIRUBIN,DIRECT 0.2 mg/dL (0.0-0.4); BILIRUBIN,TOTAL 0.5 mg/dL (0.2-1.3); BLOOD UREA NITROGEN 9 mg/dL (7-20); CALCIUM 9.7 mg/dL (8.4-10.2); CARBON DIOXIDE 26 mmol/L (22-30); CHLORIDE 105 mmol/L (98-107); CHOLESTEROL 147.49 mg/dL (0-200); GLUCOSE 91 mg/dL (75-110); POTASSIUM 4.2 mmol/L (3.6-5.0); TRIGLYCERIDES 78 mg/dL (<150)
[2019-01-18 10:47] LABS: DIRECT LDL 71 mg/dL (<100)
--- NOTE | 2019-01-18 12:50 | RADIOLOGY REPORT (SQ) ---
EXAM DESCRIPTION: SACRUM AND COCCYX COMPLETED DATE/TIME: 01/18/2019 10:23 am REASON FOR STUDY: LBP E78.5 HYPERLIPIDEMIA, UNSPECIFIED Z79.899 OTHER USP (CURRENT) DRUG THE RAPY M25.519 PAIN IN UNSPECIFIED SHOULDER COMPARISON: None. NUMBER OF VIEWS: Three views. TECHNIQUE: AP, lateral, and tilt views of the sacrum and coccyx. LIMITATIONS: None. FINDINGS: MINERALIZATION: Normal. BONES: No acute fracture or dislocation. No worrisome bone lesions. SOFT TISSUES: No soft tissue swelling. No foreign body. OTHER: Grade 1 anterolisthesis of L5 on S1. IMPRESSION: Anterolisthesis of L5 on S1. No acute findings in the sacrum or coccyx. TECHNICAL DOCUMENTATION: JOB ID: [id number] [employer]- All Rights Reserved Reading location - IP/workstation name: [email or web address]
--- NOTE | 2019-01-18 12:51 | RADIOLOGY REPORT (SQ) ---
EXAM DESCRIPTION: SHOULDER LEFT 2 OR MORE VIEWS COMPLETED DATE/TIME: 01/18/2019 10:23 am REASON FOR STUDY: PAIN IN UNSPECIFIED SHOULDER E78.5 HYPERLIPIDEMIA, UNSPECIFIED Z79.899 OTHER ANETTE G TERM (CURRENT) DRUG THERAPY M25.519 PAIN IN UNSPECIFIED SHOULDER COMPARISON: None. NUMBER OF VIEWS: Three views. TECHNIQUE: Internal rotation, external rotation, and Y view images acquired of the left shoulder. LIMITATIONS: None. FINDINGS: MINERALIZATION: Normal. BONES: No acute fracture. No worrisome bone lesions. JOINTS: No dislocation. VISUALIZED LUNGS AND RIBS: No pneumothorax. No rib fracture. SOFT TISSUES: No radiopaque foreign body. OTHER: No other significant finding. IMPRESSION: NEGATIVE STUDY OF THE LEFT SHOULDER. NO RADIOGRAPHIC EVIDENCE OF ACUTE INJURY. TECHNICAL DOCUMENTATION: JOB ID: [id number] [employer]- All Rights Reserved Reading location - IP/workstation name: [email or web address]
--- NOTE | 2019-01-18 12:52 | RADIOLOGY REPORT (SQ) ---
EXAM DESCRIPTION: T SPINE AP/LAT COMPLETED DATE/TIME: 01/18/2019 10:23 am REASON FOR STUDY: DORSALGIA, UNSPECIFIED E78.5 HYPERLIPIDEMIA, UNSPECIFIED Z79.899 OTHER [facility] (CURRENT) DRUG THERAPY M25.519 PAIN IN UNSPECIFIED SHOULDER COMPARISON: None. NUMBER OF VIEWS: Two views. TECHNIQUE: AP and lateral radiographic images acquired of the thoracic spine. LIMITATIONS: None. FINDINGS: MINERALIZATION: Normal. ALIGNMENT: Minimal scoliosis. Slightly increased kyphosis. VERTEBRAE: No fracture or bone lesion. Maintained height, normal segmentation. DISCS: No significant loss of height or significant narrowing. No large osteophytes. HARDWARE: None in the spine. MEDIASTINUM AND SOFT TISSUES: Normal heart size and aortic contour. No soft tissue abnormality. VISUALIZED LUNG OATES: Clear. OTHER: No other significant finding. IMPRESSION: Minimal scoliosis with slightly increased kyphosis. No acute finding. TECHNICAL DOCUMENTATION: JOB ID: [id number] [employer]- All Rights Reserved Reading location - IP/workstation name: [email or web address]
--- NOTE | 2019-01-18 12:52 | RADIOLOGY REPORT (SQ) ---
EXAM DESCRIPTION: SHOULDER RIGHT 2 OR MORE VIEWS COMPLETED DATE/TIME: 01/18/2019 10:23 am REASON FOR STUDY: PAIN IN UNSPECIFIED SHOULDER E78.5 HYPERLIPIDEMIA, UNSPECIFIED Z79.899 OTHER ANETTE G TERM (CURRENT) DRUG THERAPY M25.519 PAIN IN UNSPECIFIED SHOULDER COMPARISON: None. NUMBER OF VIEWS: Three views. TECHNIQUE: Internal rotation, external rotation, and Y view images acquired of the right shoulder. LIMITATIONS: None. FINDINGS: MINERALIZATION: Normal. BONES: No acute fracture. No worrisome bone lesions. JOINTS: No dislocation. VISUALIZED LUNGS AND RIBS: No pneumothorax. No rib fracture. SOFT TISSUES: No radiopaque foreign body. OTHER: No other significant finding. IMPRESSION: NEGATIVE STUDY OF THE RIGHT SHOULDER. NO RADIOGRAPHIC EVIDENCE OF ACUTE INJURY. TECHNICAL DOCUMENTATION: JOB ID: [id number] [employer]- All Rights Reserved Reading location - IP/workstation name: [email or web address]
--- NOTE | 2019-01-18 12:54 | RADIOLOGY REPORT (SQ) ---
EXAM DESCRIPTION: C SP 4 OR 5 VIEWS COMPLETED DATE/TIME: 01/18/2019 10:23 am REASON FOR STUDY: PAIN IN UNSPECIFIED SHOULDER E78.5 HYPERLIPIDEMIA, UNSPECIFIED Z79.899 OTHER ANETTE G TERM (CURRENT) DRUG THERAPY M25.519 PAIN IN UNSPECIFIED SHOULDER COMPARISON: None. NUMBER OF VIEWS: Five views. TECHNIQUE: AP, lateral, obliques and odontoid radiographic images acquired of the cervical spine. LIMITATIONS: None. FINDINGS: MINERALIZATION: Normal. ALIGNMENT: Increased lordosis. VERTEBRAE: Vertebral bodies of normal height. DISCS: Disc spaces narrowed from C5-C7 with marginal osteophytes. FORAMINA: Right foraminal narrowing at C5-6 secondary to uncovertebral osteophytes. LATERAL AND POSTERIOR ELEMENTS: Hypertrophic facet changes at multiple levels. HARDWARE: None in the spine. SOFT TISSUES: No masses or calcifications. Lung apices clear. OTHER: No other significant finding. IMPRESSION: Increased lordosis. Degenerative disc disease, spondylosis, and facet arthropathy. TECHNICAL DOCUMENTATION: JOB ID: [id number] [employer]- All Rights Reserved Reading location - IP/workstation name: [email or web address]
== END ==
LOC: OD 09:19
PROVIDERS: ATTEND Family Medicine Geriatric Medicine
DX: M25.512 Pain in left shoulder (principal); M25.511 Pain in right shoulder; M50.323 Other cervical disc degeneration at C6-C7 level; M47.892 Other spondylosis, cervical region; M41.84 Other forms of scoliosis, thoracic region; M54.6 Pain in thoracic spine; M54.5 Low back pain; E78.5 Hyperlipidemia, unspecified; E03.9 Hypothyroidism, unspecified; E83.42 Hypomagnesemia; Z79.899 Other long term (current) drug therapy
CPT/HCPCS: 36415; 72050; 72070; 72220; 80053; 80061; 83735; 84443

== ENCOUNTER → 2019-02-28 | Outpatient (CLI) | payer MEDICARE, MEDICAID | LOC: OD 09:19 | PROVIDERS: ATTEND Family Medicine Geriatric Medicine | DX: E03.9 Hypothyroidism, unspecified (principal) | CPT/HCPCS: 36415; 84443 ==

== ENCOUNTER → 2019-04-16 | Outpatient (CLI) | payer MEDICARE, MEDICAID ==
[2019-04-16 14:03] LABS: ABSOLUTE EOSINOPHILS # (AUTO) 0.2 10^3/uL (0.0-0.6); ABSOLUTE LYMPHOCYTES (AUTO) 1.2 10^3/uL (0.5-4.7); ABSOLUTE MONOCYTES (AUTO) 0.5 10^3/uL (0.1-1.4); ABSOLUTE NEUT (AUTO) 3.6 10^3/uL (1.7-8.2); BASOPHILS % (AUTO) 0.9 % (0-2); EOSINOPHILS % (AUTO) 3.6 % (0-6); HEMOGLOBIN 12.9 g/dL (12.0-15.5); LYMPHOCYTES % (AUTO) 21.7 % (13-45); MEAN CORPUSCULAR HEMOGLOBIN 34.2 pg (27.0-33.4); MEAN CORPUSCULAR HGB CONC 34.8 g/dL (32.0-36.0); MEAN CORPUSCULAR VOLUME 98 fl (80-97); PLATELET COUNT 272 10^3/uL (150-450); RED BLOOD COUNT 3.77 10^6/uL (3.72-5.28); RED CELL DISTRIBUTION WIDTH 13.6 % (11.5-14.0); SEGMENTED NEUTROPHILS % (AUTO) 64.8 % (42-78); TOTAL CELLS COUNTED % (AUTO) 100 %; WHITE BLOOD COUNT 5.5 10^3/uL (4.0-10.5)
[2019-04-16 14:40] LABS: ALBUMIN 3.9 g/dL (3.5-5.0); ALKALINE PHOSPHATASE 76 U/L (38-126); ANION GAP 8 (5-19); ASPARTATE AMINO TRANSFERASE 16 U/L (14-36); BILIRUBIN,TOTAL 0.3 mg/dL (0.2-1.3); BLOOD UREA NITROGEN 6 mg/dL (7-20); CALCIUM 9.1 mg/dL (8.4-10.2); CARBON DIOXIDE 29 mmol/L (22-30); CHLORIDE 100 mmol/L (98-107); GLUCOSE 77 mg/dL (75-110); POTASSIUM 4.3 mmol/L (3.6-5.0); TOTAL PROTEIN 6.6 g/dL (6.3-8.2)
== END ==
LOC: OD 13:06
PROVIDERS: ATTEND Family Medicine
DX: H60.503 Unspecified acute noninfective otitis externa, bilateral (principal); E78.5 Hyperlipidemia, unspecified; E83.42 Hypomagnesemia; J44.9 Chronic obstructive pulmonary disease, unspecified; K21.0 Gastro-esophageal reflux disease with esophagitis; E03.9 Hypothyroidism, unspecified; F17.200 Nicotine dependence, unspecified, uncomplicated; F32.9 Major depressive disorder, single episode, unspecified; Z79.899 Other long term (current) drug therapy; I48.20 Chronic atrial fibrillation, unspecified; Z68.23 Body mass index [BMI] 23.0-23.9, adult; M25.50 Pain in unspecified joint
CPT/HCPCS: 36415; 80053; 83735; 84443; 85025; 85652

== ENCOUNTER → 2019-04-21 | Outpatient (CLI) | payer MEDICARE, MEDICAID ==
[2019-04-21 10:27] LABS: CHOLESTEROL 162.18 mg/dL (0-200); TRIGLYCERIDES 91 mg/dL (<150)
[2019-04-21 10:38] LABS: DIRECT LDL 89 mg/dL (<100)
== END ==
LOC: OD 08:05
PROVIDERS: ATTEND Family Medicine Geriatric Medicine
DX: H60.503 Unspecified acute noninfective otitis externa, bilateral (principal); E78.5 Hyperlipidemia, unspecified; E83.42 Hypomagnesemia; J44.9 Chronic obstructive pulmonary disease, unspecified; K21.0 Gastro-esophageal reflux disease with esophagitis; E03.9 Hypothyroidism, unspecified; F17.200 Nicotine dependence, unspecified, uncomplicated; F32.9 Major depressive disorder, single episode, unspecified; I48.20 Chronic atrial fibrillation, unspecified; Z79.899 Other long term (current) drug therapy; Z68.23 Body mass index [BMI] 23.0-23.9, adult; Z29.9 Encounter for prophylactic measures, unspecified
CPT/HCPCS: 36415; 80061

== ENCOUNTER → 2019-08-25 | Outpatient (CLI) | payer MEDICARE, MEDICAID ==
[2019-08-25 10:52] LABS: ABSOLUTE BASOPHILS # (AUTO) 0.1 10^3/uL (0.0-0.2); ABSOLUTE EOSINOPHILS # (AUTO) 0.2 10^3/uL (0.0-0.6); ABSOLUTE LYMPHOCYTES (AUTO) 1.3 10^3/uL (0.5-4.7); ABSOLUTE MONOCYTES (AUTO) 0.7 10^3/uL (0.1-1.4); BASOPHILS % (AUTO) 1.2 % (0-2); EOSINOPHILS % (AUTO) 4.1 % (0-6); LYMPHOCYTES % (AUTO) 24.6 % (13-45); MEAN CORPUSCULAR HEMOGLOBIN 31.9 pg (27.0-33.4); MEAN CORPUSCULAR HGB CONC 34.2 g/dL (32.0-36.0); MEAN CORPUSCULAR VOLUME 93 fl (80-97); MONOCYTES % (AUTO) 13.2 % (3-13); PLATELET COUNT 250 10^3/uL (150-450); RED BLOOD COUNT 4.07 10^6/uL (3.72-5.28); SEGMENTED NEUTROPHILS % (AUTO) 56.9 % (42-78); TOTAL CELLS COUNTED % (AUTO) 100 %; WHITE BLOOD COUNT 5.3 10^3/uL (4.0-10.5)
--- NOTE | 2019-08-25 11:25 | RADIOLOGY REPORT (SQ) ---
EXAM DESCRIPTION: CHEST PA/LATERAL IMAGES COMPLETED DATE/TIME: 08/25/2019 10:44 am REASON FOR STUDY: COPD/ J44.9 COMPARISON: Chest radiographs 07/05/2016. EXAM PARAMETERS: NUMBER OF VIEWS: two views TECHNIQUE: Digital Frontal and Lateral radiographic views of the chest acquired. RADIATION DOSE: NA LIMITATIONS: none FINDINGS: LUNGS AND PLEURA: Hyperexpanded lungs with flattening of the hemidiaphragms. Similar left basilar scarring adjacent dome pericardial fat pad. No focal airspace consolidation. No pneumothor ax or pleural effusion. MEDIASTINUM AND HILAR STRUCTURES: Unchanged contours. Calcified atherosclerotic changes of the aorti c arch. HEART AND VASCULAR STRUCTURES: Heart normal size. No evidence for failure. BONES: Chronic lateral rib fractures. HARDWARE: None in the chest. OTHER: No other significant finding. IMPRESSION: Chronic COPD changes. No acute pulmonary findings. TECHNICAL DOCUMENTATION: JOB ID: [id number] 2010 [employer]- All Rights Reserved Reading location - IP/workstation name: [email or web address]
== END ==
LOC: OD 10:05
PROVIDERS: ATTEND Family Medicine Geriatric Medicine
DX: J44.9 Chronic obstructive pulmonary disease, unspecified (principal); E03.9 Hypothyroidism, unspecified; I10 Essential (primary) hypertension; E78.5 Hyperlipidemia, unspecified; R71.8 Other abnormality of red blood cells; Z79.899 Other long term (current) drug therapy
CPT/HCPCS: 36415; 71046; 82607; 82746; 84443; 85025

== ENCOUNTER → 2019-08-29 | Outpatient (CLI) | payer MEDICARE, MEDICAID ==
--- NOTE | 2019-08-29 13:14 | RADIOLOGY REPORT (SQ) ---
EXAM DESCRIPTION: CT HEAD WITHOUT IMAGES COMPLETED DATE/TIME: 08/29/2019 12:33 pm REASON FOR STUDY: DIZZINESS (R42) R42 DIZZINESS AND GIDDINESS COMPARISON: None. TECHNIQUE: Axial images acquired through the brain without intravenous contrast. Images reviewed wi th bone, brain and subdural windows. Additional sagittal and coronal reconstructions were generated. Images stored on PACS. All CT scanners at this facility use dose modulation, iterative reconstruction, and/or weight based d osing when appropriate to reduce radiation dose to as low as reasonably achievable (ALARA). [facility]: Dose Right [facility]: CareDose [facility]: Dose Right [facility]: Teradose 4D [facility]: Smart [employer] RADIATION DOSE: CT Rad equipment meets quality standard of care and radiation dose reduction techniq ues were employed. CTDIvol: 48.7 mGy. DLP: 980 mGy-cm. mGy. LIMITATIONS: None. FINDINGS: VENTRICLES: Normal size and contour. CEREBRUM: No masses. No hemorrhage. No midline shift. No evidence for acute infarction. Areas of l ow density in the white matter most likely chronic small vessel ischemic changes. CEREBELLUM: No masses. No hemorrhage. No alteration of density. No evidence for acute infarction. EXTRAAXIAL SPACES: No fluid collections. No masses. ORBITS AND GLOBE: No intra- or extraconal masses. Normal contour of globe without masses. CALVARIUM: No fracture. PARANASAL SINUSES: No fluid or mucosal thickening. SOFT TISSUES: No mass or hematoma. OTHER: No other significant finding. IMPRESSION: CHRONIC MICROVASCULAR ISCHEMIA. NO ACUTE IMAGING FINDINGS IN THE BRAIN. EVIDENCE OF ACUTE STROKE: NO. COMMENT: Quality ID # [id number]: Final reports with documentation of one or more dose reduction techniques (e.g., Automated exposure control, adjustment of the mA and/or kV according to patient size, use of iterative reconstruction technique) TECHNICAL DOCUMENTATION: JOB ID: [id number] 2010 [employer]- All Rights Reserved Reading location - IP/workstation name: [email or web address]
--- NOTE | 2019-08-29 15:11 | RADIOLOGY REPORT (SQ) ---
EXAM DESCRIPTION: CAROTID DOPPLER IMAGES COMPLETED DATE/TIME: 08/29/2019 2:14 pm REASON FOR STUDY: DIZZINESS AND GIDDINESS R42 DIZZINESS AND GIDDINESS COMPARISON: None. TECHNIQUE: Grayscale ultrasound, Doppler velocity and spectra, and color Doppler images acquired of the extra-cranial carotid and vertebral arteries. Images stored on PACS. LIMITATIONS: None. FINDINGS: RIGHT CAROTID CCA Velocities: Within normal limits. ICA Velocities Peak systolic 76 cm/s. End diastolic 28 cm/s. Proximal ICA/CCA peak systolic ratio 0.9. Spectra normal. No significant plaque. LEFT CAROTID CCA Velocities: Within normal limits. ICA Velocities Peak systolic 78 cm/s. End diastolic 23 cm/s. Proximal ICA/CCA peak systolic ratio 1.1. Spectra normal. No significant plaque. VERTEBRAL ARTERIES: Antegrade flow. Normal waveforms. SUBCLAVIAN ARTERIES: No finding. OTHER: No other significant finding. IMPRESSION: NO HEMODYNAMICALLY SIGNIFICANT STENOSIS. COMMENT: Quality ID #[id number]: Velocity criteria are extrapolated from the diameter data as defined by t he Society of Radiologists in Ultrasound Consensus Conference. Radiology 2003: 229; 340-346. TECHNICAL DOCUMENTATION: JOB ID: [id number] 2010 [employer]- All Rights Reserved Reading location - IP/workstation name: [email or web address]
== END ==
LOC: RAD 12:17
PROVIDERS: ATTEND Family Medicine Geriatric Medicine
DX: R42 Dizziness and giddiness (principal)
CPT/HCPCS: 70450; 93880

== ENCOUNTER → 2019-09-29 | Outpatient (CLI) | payer MEDICARE, MEDICAID | LOC: OD 09:48 | PROVIDERS: ATTEND Family Medicine Geriatric Medicine | DX: E03.9 Hypothyroidism, unspecified (principal); Z79.899 Other long term (current) drug therapy | CPT/HCPCS: 36415; 84443 ==